=== PATIENT | female | born 1975 | race Caucasian/White ===

== ENCOUNTER 2017-01-21 12:06 | Emergency (ER) | payer OTHER, SELFPAY ==
--- NOTE | 2017-01-21 13:41 | EDM.PDOC ---
Scribed by Ann Marie Kennedy 01/21/17 1341 for Johana Bazan NP ED HPI GENERAL MEDICAL PROBLEM - General Chief Complaint: General Stated Complaint: CYST ON TOP OF HEAD, DIZZLY Time Seen by Provider: 01/21/17 12:20 Source of Information: Reports: Patient, RN, RN Notes Reviewed History Limitations: Reports: No Limitations - History of Present Illness INITIAL COMMENTS - FREE TEXT/NARRATIVE: Patient presents to ER with complaint of pain to her head. States that she fell asleep in the shower on and hit her head. She states pain and dizziness since this time. States blurry vision at times. 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 Patient rates pain 10/10 when touching it. Location: Reports: Head Quality: Reports: Ache Severity: Moderate Improves with: Reports: None Worsens with: Reports: None Associated Symptoms: Reports: No Other Symptoms Head Pain Score (Numeric/FACES): 6 - Related Data Allergies Allergy/AdvReac Type Severity Reaction Status Date / Time No Known Allergies Allergy Unverified 10/04/16 10:34 Home Meds: Home Meds . [No Known Home Meds] 01/21/17 [History] ED ROS GENERAL - Review of Systems Review Of Systems: ROS reveals no pertinent complaints other than HPI. ED EXAM, GENERAL - Physical Exam Exam: See Below Exam Limited By: No Limitations General Appearance: Alert, WD/WN, No Apparent Distress Eye Exam: Bilateral Eye: Normal Inspection Ears: Normal External Exam, Normal Canal, Hearing Grossly Normal, Normal TMs Nose: Normal Inspection, Normal Mucosa, No Blood Throat/Mouth: Normal Inspection, Normal Lips, Normal Teeth, Normal Gums, Normal Oropharynx, Normal Voice, No Airway Compromise Head: Other (left lateral/to top of scalp,edematous, erythematous. Serous crust on top of area.) Neck: Normal Inspection, Supple, Non-Tender, Full Range of Motion Respiratory/Chest: No Respiratory Distress, Lungs Clear, Normal Breath Sounds, No Accessory Muscle Use, Chest Non-Tender Cardiovascular: Normal Peripheral Pulses, Regular Rate, Rhythm, No Edema, No Gallop, No JVD, No Murmur, No Rub GI/Abdominal: Normal Bowel Sounds, Soft, Non-Tender, No Organomegaly, No Distention, No Abnormal Bruit, No Mass (Female) Exam: Deferred Rectal (Female) Exam: Deferred Back Exam: Normal Inspection, Full Range of Motion, NT Extremities: Normal Inspection, Normal Range of Motion, Non-Tender, Normal Capillary Refill, No Pedal Edema Neurological: Alert, Oriented, CN II-XII Intact, Normal Cognition, Normal Gait, Normal Reflexes, No Motor/Sensory Deficits Psychiatric: Normal Affect, Normal Mood Skin Exam: Other (see head/scalp) Lymphatic: No Adenopathy Course - Vital Signs Text/Narrative:: See nurses notes for vitals. - Radiology Interpretation Free Text/Narrative:: Head CT:No acute intracranial hemorrhage or mass effect. See rad report. CT Results Date: 01/21/17 Departure - Departure Time of Disposition: 13:39 Disposition: Home, Self-Care 01 Condition: Fair Clinical Impression: Abscess - Discharge Information Instructions: Abscess Forms: ED Department Discharge Additional Instructions: RX: Bactrim and Cephalexin Rest Follow up with your primary care facility next week. I have read and agree with the documentation that has been completed regarding this visit. By signing this record, I attest that the documentation was completed in my physical presence and is an accurate record of the encounter.
[2017-01-21] MEDS ORDERED: Acetaminophen/HYDROcodone 325-5 MG Tab PO ONE (13:51)
== END 2017-01-21 13:57 | disposition home or self-care (01) ==
LOC: DL.ED 12:06
DX: L02.811 Cutaneous abscess of head [any part, except face] (principal)
CPT/HCPCS: 70450; 99284; A9270; 99283

== ENCOUNTER 2017-09-17 20:08 | Emergency (ER) | payer SELFPAY ==
[2017-09-17] MEDS ORDERED: Acetaminophen/oxyCODONE 325-5 MG Tab PO ONE ×2 (20:09→21:24)
[2017-09-17] MEDS ORDERED: Ibuprofen 600 MG Tab PO ONE (20:53)
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
[2017-09-17] MEDS ORDERED: Acetaminophen/oxyCODONE 325-5 MG Tab ONE (22:19)
== END 2017-09-17 22:28 | disposition home or self-care (01) ==
LOC: DL.ED 20:08
DX: S50.12XA Contusion of left forearm, initial encounter (principal); F17.210 Nicotine dependence, cigarettes, uncomplicated; W20.8XXA Other cause of strike by thrown, projected or falling object, initial encounter; Y93.89 Activity, other specified; Y92.096 Garden or yard of other non-institutional residence as the place of occurrence of the external cause
CPT/HCPCS: 73090; 99283; A9270

== ENCOUNTER 2018-08-31 11:06 | Emergency (ER) | payer MEDICAID ==
[2018-08-31 11:48] LABS: ANION GAP 13.9; CHLORIDE,CL 106 mmol/L (101-111); SODIUM,NA 138 mmol/L (135-145)
[2018-08-31] MEDS ORDERED: Ketorolac 30 MG/ML SDV IM ONE (12:13)
--- NOTE | 2018-08-31 12:15 | EDM.PDOC ---
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 LMP was June. Her due date is March. She has 3 live births/2 D&C/2 miscarriage-- her 5th . She had cramping a couple of hours ago. She has also had chills and diarrhea. No fever, nausea and vomiting. Onset: Gradual Duration: Getting Worse Location: Reports: Abdomen Quality: Reports: Ache Severity: Mild Improves with: Reports: None Worsens with: Reports: None Associated Symptoms: Reports: No Other Symptoms - Related Data Allergies Allergy/AdvReac Type Severity Reaction Status Date / Time No Known Allergies Allergy Verified 08/31/18 11:34 Home Meds: Home Meds Albuterol Sulfate 1 inh INH ASDIRECTED PRN 02/14/18 [History] Albuterol [Ventolin HFA] 1 inh INH ASDIRECTED PRN 02/14/18 [History] ClonazePAM [KlonoPIN] 0.5 mg PO DAILY 02/14/18 [History] FLUoxetine HCl [Fluoxetine HCl] 20 mg PO DAILY 02/14/18 [History] Past Medical History Respiratory History: Reports: Asthma, Bronchitis, Recurrent Genitourinary History: Reports: Renal Disease (Renal cysts) 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: Neurological History: Reports: Concussion Psychiatric History: Reports: Anxiety, Depression Endocrine/Metabolic History: Reports: Obesity/BMI 30+ Dermatologic History: Reports: Other (See Below) Other Dermatologic History: cysts - Infectious Disease History Infectious Disease History: Reports: Chicken Pox, Measles - Past Surgical History HEENT Surgical History: Reports: Tonsillectomy Musculoskeletal Surgical History: Reports: Other (See Below) Other Musculoskeletal Surgeries/Procedures:: hx of fractured ankle Social & Family History - Family History Family Medical History: Noncontributory - Caffeine Use Caffeine Use: Reports: Coffee, Soda - Living Situation & Occupation Living situation: Reports: with Family ED ROS GENERAL - Review of Systems Review Of Systems: ROS reveals no pertinent complaints other than HPI. ED EXAM, RENAL/ - Physical Exam Exam: See Below Exam Limited By: No Limitations General Appearance: Anxious (very) Eye Exam: Bilateral Eye: Normal Inspection Ears: Normal External Exam, Normal Canal, Hearing Grossly Normal, Normal TMs Nose: Normal Inspection, Normal Mucosa, No Blood Throat/Mouth: Normal Inspection, Normal Lips, Normal Teeth, Normal Gums, Normal Oropharynx, Normal Voice, No Airway Compromise Head: Atraumatic, Normocephalic Neck: Normal Inspection, Supple, Non-Tender, Full Range of Motion Respiratory/Chest: No Respiratory Distress, Lungs Clear, Normal Breath Sounds, No Accessory Muscle Use, Chest Non-Tender Cardiovascular: Normal Peripheral Pulses, Regular Rate, Rhythm, No Edema, No Gallop, No JVD, No Murmur, No Rub GI/Abdominal: Normal Bowel Sounds, Soft, Tender (Female) Exam: Normal External Exam, Normal Speculum Exam, Vaginal Bleeding Rectal (Female) Exam: Normal Exam Back Exam: Normal Inspection, Full Range of Motion, NT Extremities: Normal Inspection, Normal Range of Motion, Non-Tender, Normal Capillary Refill, No Pedal Edema Neurological: Alert, Oriented, CN II-XII Intact, Normal Cognition, Normal Gait, Normal Reflexes, No Motor/Sensory Deficits Psychiatric: Anxious (very) Skin Exam: Warm, Dry, Intact, Normal Color, No Rash Lymphatic: No Adenopathy Course - Vital Signs Last Recorded V/S: Last Vital Signs Temp 97.8 F 08/31/18 11:36 Pulse 72 08/31/18 11:36 Resp 16 08/31/18 11:36 BP 134/78 08/31/18 11:36 Pulse Ox 98 08/31/18 11:36 - Orders/Labs/Meds Orders: Active Orders 24 hr Category Date Time Status UA RFX KEIRA AND CULT IF INDIC [URIN] Stat Lab 08/31/18 11:12 Received Labs: Laboratory Tests 08/31/18 08/31/18 08/31/18 Range/Units 11:12 11:12 11:22 WBC 6.7 (5.0-10.0) 10^3/uL RBC 4.97 (4.2-5.4) 10^6/uL Hgb 15.5 (12.0-16.0) g/dL Hct 44.0 (37.0-47.0) % MCV 88.5 (80-100) fL MCH 31.2 (27.0-34.0) pg MCHC 35.2 H (33.0-35.0) g/dL Plt Count 274 (150-450) 10^3/uL Neut % (Auto) 52.7 (42.2-75.2) % Lymph % (Auto) 38.9 (20.5-50.1) % [place] % (Auto) 5.2 (2-8) % Eos % (Auto) 2.8 (1.0-3.0) % Baso % (Auto) 0.4 (0.0-1.0) % Sodium (135-145) mmol/L Potassium (3.6-5.0) mmol/L Chloride (101-111) mmol/L Carbon Dioxide (21.0-31.0) mmol/L Anion Gap BUN (7-18) mg/dL Creatinine (0.6-1.3) mg/dL Est Cr Clr Drug Dosing mL/min Estimated GFR (MDRD) BUN/Creatinine Ratio Glucose (74-105) mg/dL Calcium (8.4-10.2) mg/dl Total Bilirubin (0.2-1.0) mg/dL AST (10-42) IU/L ALT (10-60) IU/L Alkaline Phosphatase (42-121) IU/L Total Protein (6.7-8.2) g/dl Albumin (3.2-5.5) g/dl Globulin Albumin/Globulin Ratio Urine HCG, Qual Negative Urine Opiates Screen Negative (NEGATIVE) Ur Oxycodone Screen Negative (NEGATIVE) Urine Methadone Screen Negative (NEGATIVE) Ur Barbiturates Screen Negative (NEGATIVE) U Tricyclic Antidepress Negative (NEGATIVE) Ur Phencyclidine Scrn Negative (NEGATIVE) Ur Amphetamine Screen Negative (NEGATIVE) U Methamphetamines Scrn Negative (NEGATIVE) Urine MDMA Screen Negative (NEGATIVE) U Benzodiazepines Scrn Negative (NEGATIVE) Urine Cocaine Screen Negative (NEGATIVE) U Marijuana (THC) Screen Negative (NEGATIVE) Ethyl Alcohol mg/dL 08/31/18 Range/Units 11:22 WBC (5.0-10.0) 10^3/uL RBC (4.2-5.4) 10^6/uL Hgb (12.0-16.0) g/dL Hct (37.0-47.0) % MCV (80-100) fL MCH (27.0-34.0) pg MCHC (33.0-35.0) g/dL Plt Count (150-450) 10^3/uL Neut % (Auto) (42.2-75.2) % Lymph % (Auto) (20.5-50.1) % [place] % (Auto) (2-8) % Eos % (Auto) (1.0-3.0) % Baso % (Auto) (0.0-1.0) % Sodium 138 (135-145) mmol/L Potassium 3.9 (3.6-5.0) mmol/L Chloride 106 (101-111) mmol/L Carbon Dioxide 22.0 (21.0-31.0) mmol/L Anion Gap 13.9 BUN 9 (7-18) mg/dL Creatinine 0.5 L (0.6-1.3) mg/dL Est Cr Clr Drug Dosing 135.81 mL/min Estimated GFR (MDRD) > 60 BUN/Creatinine Ratio 18.00 Glucose 130 H (74-105) mg/dL Calcium 9.1 (8.4-10.2) mg/dl Total Bilirubin 0.5 (0.2-1.0) mg/dL AST 22 (10-42) IU/L ALT 26 (10-60) IU/L Alkaline Phosphatase 57 (42-121) IU/L Total Protein 7.1 (6.7-8.2) g/dl Albumin 4.3 (3.2-5.5) g/dl Globulin 2.8 Albumin/Globulin Ratio 1.54 Urine HCG, Qual Urine Opiates Screen (NEGATIVE) Ur Oxycodone Screen (NEGATIVE) Urine Methadone Screen (NEGATIVE) Ur Barbiturates Screen (NEGATIVE) U Tricyclic Antidepress (NEGATIVE) Ur Phencyclidine Scrn (NEGATIVE) Ur Amphetamine Screen (NEGATIVE) U Methamphetamines Scrn (NEGATIVE) Urine MDMA Screen (NEGATIVE) U Benzodiazepines Scrn (NEGATIVE) Urine Cocaine Screen (NEGATIVE) U Marijuana (THC) Screen (NEGATIVE) Ethyl Alcohol < 5 mg/dL Departure - Departure Time of Disposition: 12:11 Disposition: Home, Self-Care 01 Condition: Fair Clinical Impression: Complete - Discharge Information *PRESCRIPTION DRUG MONITORING PROGRAM REVIEWED*: No *COPY OF PRESCRIPTION DRUG MONITORING REPORT IN PATIENT SARY: No Instructions: Miscarriage, [id number] Forms: ED Department Discharge Additional Instructions: Return to the ER with any further problems, Fever, chills, Excessive Bleeding ( changing pad every hour) May use Tylenol and/or Ibuprofen as directed for pain Follow up with Dr. Bush next week Drink plenty of water - My Orders Last 24 Hours: My Active Orders 08/31/18 11:12 UA RFX KEIRA AND CULT IF INDIC [URIN] Stat - Assessment/Plan Last 24 Hours: My Active Orders 08/31/18 11:12 UA RFX KEIRA AND CULT IF INDIC [URIN] Stat I have read and agree with the documentation that has been completed regarding this visit. By signing this record, I attest that the documentation was completed in my physical presence and is an accurate record of the encounter.
== END 2018-08-31 12:29 | disposition home or self-care (01) ==
LOC: DL.ED 11:06
DX: O03.9 Complete or unspecified spontaneous abortion without complication (principal); J45.909 Unspecified asthma, uncomplicated; F41.9 Anxiety disorder, unspecified; F32.9 Major depressive disorder, single episode, unspecified; Z79.899 Other long term (current) drug therapy
CPT/HCPCS: 36415; 80053; 80305; 81001; 81025; 85025; 96372; 99283; G0480; J1885

== ENCOUNTER 2018-11-21 11:55 | Emergency (ER) | payer SELFPAY ==
[2018-11-21] MEDS ORDERED: Albuterol/Ipratropium 3.0-0.5 MG/3 ML Neb Soln NEB ONE (12:13)
--- NOTE | 2018-11-21 12:13 | EDM.PDOC ---
ED HPI GENERAL MEDICAL PROBLEM - General Chief Complaint: Respiratory Problem Stated Complaint: hard time breathing Time Seen by Provider: 11/21/18 12:13 Source of Information: Reports: Patient, Old Records, RN, RN Notes Reviewed History Limitations: Reports: No Limitations - History of Present Illness INITIAL COMMENTS - FREE TEXT/NARRATIVE: Pt presents to ER from home by POV with c/o cough, wheezing, and shortness of breath. Pt reports Hx of asthma, and has been using her Albuterol inhaler without much relief. Pt admits to productive cough with green sputum. Today she also saw some blood tinge to her sputum. Pt states she has reduced her smoking this week because she has been too short of breath to smoke. Pt denies fevers, chills, or chest pain. Pt states she has an pulse-oxy. device at home and has not had oxygen saturations less than 98%. 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 Treatments - Related Data Allergies Allergy/AdvReac Type Severity Reaction Status Date / Time No Known Allergies Allergy Verified 11/21/18 12:09 Home Meds: Home Meds Albuterol Sulfate 1 inh INH ASDIRECTED PRN 02/14/18 [History] Albuterol [Ventolin HFA] 1 inh INH ASDIRECTED PRN 02/14/18 [History] ClonazePAM [KlonoPIN] 0.5 mg PO DAILY 02/14/18 [History] Sertraline [Zoloft] 25 mg PO DAILY 11/21/18 [History] Past Medical History Respiratory History: Reports: Asthma, Bronchitis, Recurrent, Other (See Below) ( Tobacco/Cigarette dependence) Genitourinary History: Reports: Renal Disease (Renal cysts) 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: Neurological History: Reports: Concussion Psychiatric History: Reports: Anxiety, Depression Endocrine/Metabolic History: Reports: Obesity/BMI 30+ Dermatologic History: Reports: Other (See Below) Other Dermatologic History: cysts - Infectious Disease History Infectious Disease History: Reports: Chicken Pox, Measles - Past Surgical History HEENT Surgical History: Reports: Tonsillectomy Musculoskeletal Surgical History: Reports: Other (See Below) Other Musculoskeletal Surgeries/Procedures:: hx of fractured ankle Social & Family History - Family History Family Medical History: Noncontributory - Tobacco Use Smoking Status *Q: Current Every Day Smoker Tobacco Use Within Last Twelve Months: Cigarettes - Caffeine Use Caffeine Use: Reports: Coffee, Soda - Living Situation & Occupation Living situation: Reports: with Significant Other, with Family ED ROS GENERAL - Review of Systems Review Of Systems: ROS reveals no pertinent complaints other than HPI. ED EXAM, GENERAL - Physical Exam Exam: See Below Exam Limited By: No Limitations General Appearance: Alert, WD/WN, Mild Distress (Slightly labored breathing), Obese Ears: Normal External Exam, Hearing Grossly Normal Nose: Normal Inspection, Normal Mucosa, No Blood Throat/Mouth: Normal Lips, Normal Oropharynx, Normal Voice, No Airway Compromise , Other (Chronic dental decay) Head: Atraumatic, Normocephalic Neck: Normal Inspection, Supple, Non-Tender, Full Range of Motion. No: Lymphadenopathy (L), Lymphadenopathy (R) Respiratory/Chest: No Respiratory Distress, No Accessory Muscle Use, Chest Non- Tender, Decreased Breath Sounds, Crackles, Wheezing. No: Rales, Rhonchi, Stridor Cardiovascular: Regular Rate, Rhythm, No Edema GI/Abdominal: Normal Bowel Sounds, Soft, Non-Tender, Other (Benign obese abdomen ) Back Exam: Normal Inspection Extremities: Normal Inspection, Normal Range of Motion, Non-Tender, Normal Capillary Refill, No Pedal Edema Neurological: Alert, Oriented, CN II-XII Intact, Normal Cognition, Normal Gait, No Motor/Sensory Deficits Psychiatric: Normal Affect, Normal Mood Skin Exam: Warm, Dry, Intact, Normal Color, No Rash Course - Vital Signs Last Recorded V/S: Last Vital Signs Temp 97.4 F 11/21/18 12:03 Pulse 80 11/21/18 12:03 Resp 20 11/21/18 12:03 BP 133/70 11/21/18 12:03 Pulse Ox 98 11/21/18 12:03 - Orders/Labs/Meds Orders: Active Orders 24 hr Category Date Time Status Peripheral IV Care [RC] . DIRECTED Care 11/21/18 12:18 Active RT Aerosol Therapy [RC] ASDIRECTED Care 11/21/18 12:13 Active Sodium Chloride 0.9% [Saline Flush] Med 11/21/18 12:18 Active 10 ml FLUSH ASDIRECTED PRN Peripheral IV Insertion Adult [OM.PC] Stat Oth 11/21/18 12:17 Ordered Medication Orders Sodium Chloride (Saline Flush) 10 ml FLUSH ASDIRECTED PRN PRN Reason: Keep Vein Open Last Admin: 11/21/18 12:44 Dose: 10 ml Labs: Laboratory Tests 11/21/18 11/21/18 11/21/18 Range/Units 12:19 12:19 12:19 WBC 8.0 (5.0-10.0) 10^3/uL RBC 4.30 (4.2-5.4) 10^6/uL Hgb 13.6 D (12.0-16.0) g/dL Hct 38.8 (37.0-47.0) % MCV 90.2 (80-100) fL MCH 31.6 (27.0-34.0) pg MCHC 35.1 H (33.0-35.0) g/dL Plt Count 249 (150-450) 10^3/uL Neut % (Auto) 63.3 (42.2-75.2) % Lymph % (Auto) 27.0 (20.5-50.1) % [place] % (Auto) 7.2 (2-8) % Eos % (Auto) 2.1 (1.0-3.0) % Baso % (Auto) 0.4 (0.0-1.0) % D-Dimer, Quantitative 222 (0-400) ng/mL Sodium 140 (135-145) mmol/L Potassium 3.8 (3.6-5.0) mmol/L Chloride 105 (101-111) mmol/L Carbon Dioxide 26.0 (21.0-31.0) mmol/L Anion Gap 12.8 BUN 12 (7-18) mg/dL Creatinine 0.5 L (0.6-1.3) mg/dL Est Cr Clr Drug Dosing 141.08 mL/min Estimated GFR (MDRD) > 60 BUN/Creatinine Ratio 24.00 Glucose 132 H (74-105) mg/dL Calcium 9.0 (8.4-10.2) mg/dl Total Bilirubin 0.4 (0.2-1.0) mg/dL AST 28 (10-42) IU/L ALT 40 (10-60) IU/L Alkaline Phosphatase 63 (42-121) IU/L Total Protein 7.0 (6.7-8.2) g/dl Albumin 4.0 (3.2-5.5) g/dl Globulin 3.0 Albumin/Globulin Ratio 1.33 Urine Color (YELLOW) Urine Appearance (CLEAR) Urine pH (5.0-9.0) Ur Specific [place] (1.005-1.030) Urine Protein (NEGATIVE) Urine Glucose (UA) (NEGATIVE) Urine Ketones (NEGATIVE) Urine Occult Blood (NEGATIVE) Urine Nitrite (NEGATIVE) Urine Bilirubin (NEGATIVE) Urine Urobilinogen (0.2-1.0) mg/dL Ur Leukocyte Esterase (NEGATIVE) Urine HCG, Qual 11/21/18 11/21/18 Range/Units 12:30 12:39 WBC (5.0-10.0) 10^3/uL RBC (4.2-5.4) 10^6/uL Hgb (12.0-16.0) g/dL Hct (37.0-47.0) % MCV (80-100) fL MCH (27.0-34.0) pg MCHC (33.0-35.0) g/dL Plt Count (150-450) 10^3/uL Neut % (Auto) (42.2-75.2) % Lymph % (Auto) (20.5-50.1) % [place] % (Auto) (2-8) % Eos % (Auto) (1.0-3.0) % Baso % (Auto) (0.0-1.0) % D-Dimer, Quantitative (0-400) ng/mL Sodium (135-145) mmol/L Potassium (3.6-5.0) mmol/L Chloride (101-111) mmol/L Carbon Dioxide (21.0-31.0) mmol/L Anion Gap BUN (7-18) mg/dL Creatinine (0.6-1.3) mg/dL Est Cr Clr Drug Dosing mL/min Estimated GFR (MDRD) BUN/Creatinine Ratio Glucose (74-105) mg/dL Calcium (8.4-10.2) mg/dl Total Bilirubin (0.2-1.0) mg/dL AST (10-42) IU/L ALT (10-60) IU/L Alkaline Phosphatase (42-121) IU/L Total Protein (6.7-8.2) g/dl Albumin (3.2-5.5) g/dl Globulin Albumin/Globulin Ratio Urine Color Yellow (YELLOW) Urine Appearance Clear (CLEAR) Urine pH 7.5 (5.0-9.0) Ur Specific [place] 1.015 (1.005-1.030) Urine Protein Negative (NEGATIVE) Urine Glucose (UA) Negative (NEGATIVE) Urine Ketones Negative (NEGATIVE) Urine Occult Blood Negative (NEGATIVE) Urine Nitrite Negative (NEGATIVE) Urine Bilirubin Negative (NEGATIVE) Urine Urobilinogen 0.2 (0.2-1.0) mg/dL Ur Leukocyte Esterase Negative (NEGATIVE) Urine HCG, Qual Negative Meds: Medications Generic Name Dose Route Start Last Admin Trade Name Freq PRN Reason Stop Dose Admin Sodium Chloride 10 ml 11/21/18 12:18 11/21/18 12:44 Saline Flush FLUSH 10 ml ASDIRECTED PRN Administration Keep Vein Open Discontinued Medications Generic Name Dose Route Start Last Admin Trade Name Freq PRN Reason Stop Dose Admin Albuterol/Ipratropium 3 ml 11/21/18 12:13 11/21/18 12:25 Duoneb 3.0-0.5 Mg/3 Ml NEB 11/21/18 12:14 3 ml ONETIME ONE Administration Sodium Chloride 1,000 mls @ 999 mls/hr 11/21/18 12:18 11/21/18 12:43 Normal Saline IV 11/21/18 13:18 999 mls/hr .BOLUS ONE Administration Magnesium Sulfate 100 mls @ 200 mls/hr 11/21/18 12:19 11/21/18 12:54 Magnesium Sulfate In Water Premix IV 11/21/18 12:48 200 mls/hr ONETIME ONE Administration Methylprednisolone Sodium Succinate 125 mg 11/21/18 12:18 11/21/18 12:43 Solu-Medrol IVPUSH 11/21/18 12:19 125 mg ONETIME ONE Administration Ondansetron HCl 4 mg 11/21/18 13:09 11/21/18 13:20 Zofran IV 11/21/18 13:10 4 mg ONETIME ONE Administration - Radiology Interpretation Free Text/Narrative:: CXR: no focal infiltrates, see Rad. report. Departure - Departure Time of Disposition: 13:47 Disposition: Home, Self-Care 01 Condition: Good Clinical Impression: Acute asthma Acute bronchitis Qualifiers: Bronchitis organism: other organism Qualified Code(s): J20.8 - Acute bronchitis due to other specified organisms - Discharge Information *PRESCRIPTION DRUG MONITORING PROGRAM REVIEWED*: No *COPY OF PRESCRIPTION DRUG MONITORING REPORT IN PATIENT SARY: No Instructions: Acute Bronchitis, Adult, Asthma Attack, Steps to Quit Smoking, [id number] Forms: ED Department Discharge Additional Instructions: Rx: Zithromax 500mg Rx: Prednisone 20mg Use your Albuterol nebulizer every 4 hours while awake until wheezing and cough resolve. Try to quit smoking. Follow up in clinic if not improving in 3 to 5 days. - My Orders Last 24 Hours: My Active Orders 11/21/18 12:13 RT Aerosol Therapy [RC] ASDIRECTED 11/21/18 12:17 Peripheral IV Insertion Adult [OM.PC] Stat 11/21/18 12:18 Peripheral IV Care [RC] . DIRECTED Sodium Chloride 0.9% [Saline Flush] 10 ml FLUSH ASDIRECTED PRN - Assessment/Plan Last 24 Hours: My Active Orders 11/21/18 12:13 RT Aerosol Therapy [RC] ASDIRECTED 11/21/18 12:17 Peripheral IV Insertion Adult [OM.PC] Stat 11/21/18 12:18 Peripheral IV Care [RC] . DIRECTED Sodium Chloride 0.9% [Saline Flush] 10 ml FLUSH ASDIRECTED PRN
[2018-11-21] MEDS ORDERED: Sodium Chloride 0.9% 1,000 ML IV ONE (12:18)
[2018-11-21] MEDS ORDERED: Sodium Chloride 0.9% 10 ML Syringe FLUSH PRN (12:18)
[2018-11-21] MEDS ORDERED: methylPREDNISolone Sodium Succinate 125 MG/2 ML SDV IVPUSH ONE (12:18)
[2018-11-21] MEDS ORDERED: Magnesium Sulfate/Water 100 ML IV ONE (12:19)
[2018-11-21 12:49] LABS: ANION GAP 12.8; CHLORIDE,CL 105 mmol/L (101-111); SODIUM,NA 140 mmol/L (135-145)
[2018-11-21] MEDS ORDERED: Ondansetron 4 MG/2 ML SDV IV ONE (13:09)
== END 2018-11-21 14:08 | disposition home or self-care (01) ==
LOC: DL.ED 11:55
DX: J20.8 Acute bronchitis due to other specified organisms (principal); J45.901 Unspecified asthma with (acute) exacerbation; F41.9 Anxiety disorder, unspecified; F32.9 Major depressive disorder, single episode, unspecified; F17.210 Nicotine dependence, cigarettes, uncomplicated; Z79.899 Other long term (current) drug therapy
CPT/HCPCS: 36415; 71046; 80053; 81003; 81025; 85025; 85379; 96365; 96375; 99285; J2405; J2930; J3475; J7030; J7620-GY

== ENCOUNTER 2018-12-03 08:50 | Observation (INO) | payer MEDICAID, OTHER ==
--- NOTE | 2018-12-03 09:30 | EDM.PDOC ---
ED HPI GENERAL MEDICAL PROBLEM - General Chief Complaint: Abdominal Pain Stated Complaint: INTESTINAL PROBLEMS Time Seen by Provider: 12/03/18 09:15 Source of Information: Reports: Patient, RN, RN Notes Reviewed History Limitations: Reports: No Limitations - History of Present Illness INITIAL COMMENTS - FREE TEXT/NARRATIVE: Pt to ER with c/o abdominal pain related to constipation. Patient states she has not had a BM in over 1 week. States she has been having intermittent sharp pains in the left side of the abdomen. Patient states she took a number of stool softeners and laxatives yesterday with no results. Patient states she also used enemas and only got clear watery return. Pt admits to chills and nausea. Denies vomiting, unsure about fever. Denies chances of . Onset: Gradual Abdominal Pain Score (Numeric/FACES): 10 - Related Data Allergies Allergy/AdvReac Type Severity Reaction Status Date / Time No Known Allergies Allergy Verified 11/21/18 12:09 Home Meds: Home Meds Albuterol Sulfate 1 inh INH ASDIRECTED PRN 02/14/18 [History] Albuterol [Ventolin HFA] 1 inh INH ASDIRECTED PRN 02/14/18 [History] ClonazePAM [KlonoPIN] 0.5 mg PO DAILY 02/14/18 [History] Sertraline [Zoloft] 25 mg PO DAILY 11/21/18 [History] Past Medical History Cardiovascular History: Reports: None Respiratory History: Reports: Asthma, Bronchitis, Recurrent, Other (See Below) ( Tobacco/Cigarette dependence) Genitourinary History: Reports: Renal Disease (Renal cysts) 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: Neurological History: Reports: Concussion Psychiatric History: Reports: Anxiety, Depression Endocrine/Metabolic History: Reports: Obesity/BMI 30+ Dermatologic History: Reports: Other (See Below) Other Dermatologic History: cysts - Infectious Disease History Infectious Disease History: Reports: Chicken Pox, Measles - Past Surgical History HEENT Surgical History: Reports: Tonsillectomy Musculoskeletal Surgical History: Reports: Other (See Below) Other Musculoskeletal Surgeries/Procedures:: hx of fractured ankle Social & Family History - Family History Family Medical History: Noncontributory - Caffeine Use Caffeine Use: Reports: Coffee, Soda - Living Situation & Occupation Living situation: Reports: with Significant Other, with Family ED ROS GENERAL - Review of Systems Review Of Systems: ROS reveals no pertinent complaints other than HPI. ED EXAM, GI/ABD - Physical Exam Exam: See Below Exam Limited By: No Limitations General Appearance: Alert, WD/WN, Moderate Distress Eyes: Bilateral: Normal Appearance, EOMI Ears: Normal External Exam, Hearing Grossly Normal Nose: Normal Inspection Throat/Mouth: Normal Inspection, Normal Voice, No Airway Compromise Head: Atraumatic, Normocephalic Neck: Normal Inspection, Supple, Non-Tender, Full Range of Motion Respiratory/Chest: No Respiratory Distress, Lungs Clear, Normal Breath Sounds, No Accessory Muscle Use, Chest Non-Tender Cardiovascular: Normal Peripheral Pulses, Regular Rate, Rhythm, No Edema, No Gallop, No JVD, No Murmur, No Rub GI/Abdominal Exam: Normal Bowel Sounds, Distended, Tender (LUQ, LLQ), Other ( firm) (Female) Exam: Deferred Rectal (Female) Exam: Deferred Back Exam: Normal Inspection, Full Range of Motion, NT Extremities: Normal Inspection, Normal Range of Motion, Non-Tender, Normal Capillary Refill, No Pedal Edema Neurological: Alert, Oriented, CN II-XII Intact, Normal Cognition, Normal Gait, Normal Reflexes, No Motor/Sensory Deficits Psychiatric: Normal Affect, Normal Mood Skin Exam: Warm, Dry, Intact, Normal Color, No Rash Lymphatic: No Adenopathy Course - Vital Signs Last Recorded V/S: Last Vital Signs Temp 98.5 F 12/03/18 10:55 Pulse 82 12/03/18 10:55 Resp 18 12/03/18 10:55 BP 126/81 12/03/18 10:55 Pulse Ox 97 12/03/18 10:55 - Orders/Labs/Meds Orders: Active Orders 24 hr Category Date Time Status Enema [RC] ASDIRECTED Care 12/03/18 10:28 Active Abdomen Pelvis w Cont [CT] Urgent Exams 12/03/18 11:30 Taken Labs: Laboratory Tests 12/03/18 12/03/18 12/03/18 Range/Units 09:20 09:20 09:20 WBC (5.0-10.0) 10^3/uL RBC (4.2-5.4) 10^6/uL Hgb (12.0-16.0) g/dL Hct (37.0-47.0) % MCV (80-100) fL MCH (27.0-34.0) pg MCHC (33.0-35.0) g/dL Plt Count (150-450) 10^3/uL Neut % (Auto) (42.2-75.2) % Lymph % (Auto) (20.5-50.1) % [place] % (Auto) (2-8) % Eos % (Auto) (1.0-3.0) % Baso % (Auto) (0.0-1.0) % Sodium (135-145) mmol/L Potassium (3.6-5.0) mmol/L Chloride (101-111) mmol/L Carbon Dioxide (21.0-31.0) mmol/L Anion Gap BUN (7-18) mg/dL Creatinine (0.6-1.3) mg/dL Est Cr Clr Drug Dosing mL/min Estimated GFR (MDRD) BUN/Creatinine Ratio Glucose (74-105) mg/dL Calcium (8.4-10.2) mg/dl Total Bilirubin (0.2-1.0) mg/dL AST (10-42) IU/L ALT (10-60) IU/L Alkaline Phosphatase (42-121) IU/L Total Protein (6.7-8.2) g/dl Albumin (3.2-5.5) g/dl Globulin Albumin/Globulin Ratio Urine Color Yellow (YELLOW) Urine Appearance Slightly cloudy (CLEAR) Urine pH 8.5 (5.0-9.0) Ur Specific [place] 1.015 (1.005-1.030) Urine Protein Negative (NEGATIVE) Urine Glucose (UA) Negative (NEGATIVE) Urine Ketones Negative (NEGATIVE) Urine Occult Blood Negative (NEGATIVE) Urine Nitrite Negative (NEGATIVE) Urine Bilirubin Negative (NEGATIVE) Urine Urobilinogen 0.2 (0.2-1.0) mg/dL Ur Leukocyte Esterase Negative (NEGATIVE) Urine HCG, Qual Negative Urine Opiates Screen Negative (NEGATIVE) Ur Oxycodone Screen Negative (NEGATIVE) Urine Methadone Screen Negative (NEGATIVE) Ur Barbiturates Screen Negative (NEGATIVE) U Tricyclic Antidepress Negative (NEGATIVE) Ur Phencyclidine Scrn Negative (NEGATIVE) Ur Amphetamine Screen Negative (NEGATIVE) U Methamphetamines Scrn Negative (NEGATIVE) Urine MDMA Screen Negative (NEGATIVE) U Benzodiazepines Scrn Negative (NEGATIVE) Urine Cocaine Screen Negative (NEGATIVE) U Marijuana (THC) Screen Negative (NEGATIVE) 12/03/18 12/03/18 Range/Units 10:37 10:37 WBC 8.2 (5.0-10.0) 10^3/uL RBC 4.49 (4.2-5.4) 10^6/uL Hgb 14.4 (12.0-16.0) g/dL Hct 41.7 (37.0-47.0) % MCV 92.9 (80-100) fL MCH 32.1 (27.0-34.0) pg MCHC 34.5 (33.0-35.0) g/dL Plt Count 239 (150-450) 10^3/uL Neut % (Auto) 56.6 (42.2-75.2) % Lymph % (Auto) 31.7 (20.5-50.1) % [place] % (Auto) 8.6 H (2-8) % Eos % (Auto) 2.6 (1.0-3.0) % Baso % (Auto) 0.5 (0.0-1.0) % Sodium 137 (135-145) mmol/L Potassium 3.8 (3.6-5.0) mmol/L Chloride 102 (101-111) mmol/L Carbon Dioxide 27.0 (21.0-31.0) mmol/L Anion Gap 11.8 BUN 12 (7-18) mg/dL Creatinine 0.7 (0.6-1.3) mg/dL Est Cr Clr Drug Dosing 100.77 mL/min Estimated GFR (MDRD) > 60 BUN/Creatinine Ratio 17.14 Glucose 139 H (74-105) mg/dL Calcium 8.9 (8.4-10.2) mg/dl Total Bilirubin 0.8 (0.2-1.0) mg/dL AST 21 (10-42) IU/L ALT 31 (10-60) IU/L Alkaline Phosphatase 55 (42-121) IU/L Total Protein 7.1 (6.7-8.2) g/dl Albumin 4.2 (3.2-5.5) g/dl Globulin 2.9 Albumin/Globulin Ratio 1.45 Urine Color (YELLOW) Urine Appearance (CLEAR) Urine pH (5.0-9.0) Ur Specific [place] (1.005-1.030) Urine Protein (NEGATIVE) Urine Glucose (UA) (NEGATIVE) Urine Ketones (NEGATIVE) Urine Occult Blood (NEGATIVE) Urine Nitrite (NEGATIVE) Urine Bilirubin (NEGATIVE) Urine Urobilinogen (0.2-1.0) mg/dL Ur Leukocyte Esterase (NEGATIVE) Urine HCG, Qual Urine Opiates Screen (NEGATIVE) Ur Oxycodone Screen (NEGATIVE) Urine Methadone Screen (NEGATIVE) Ur Barbiturates Screen (NEGATIVE) U Tricyclic Antidepress (NEGATIVE) Ur Phencyclidine Scrn (NEGATIVE) Ur Amphetamine Screen (NEGATIVE) U Methamphetamines Scrn (NEGATIVE) Urine MDMA Screen (NEGATIVE) U Benzodiazepines Scrn (NEGATIVE) Urine Cocaine Screen (NEGATIVE) U Marijuana (THC) Screen (NEGATIVE) Meds: Medications Discontinued Medications Generic Name Dose Route Start Last Admin Trade Name Freq PRN Reason Stop Dose Admin Iopamidol 100 ml 12/03/18 11:31 12/03/18 11:53 Isovue-300 (61%) IVPUSH 12/03/18 11:32 100 ml ONETIME ONE Administration Magnesium Citrate 296 ml 12/03/18 10:27 12/03/18 10:36 Citrate Of Magnesia PO 12/03/18 10:28 296 ml ONETIME ONE Administration - Radiology Interpretation Free Text/Narrative:: Abdomen flat and upright: FINDINGS: Gastrointestinal tract: There is no significant distention of the small bowel or large bowel on this current examination. No significant stool burden. Intraperitoneal space: Surgical clips are noted in the right upper quadrant most likely due to prior cholecystectomy. Bones/joints: Unremarkable for age. IMPRESSION: No significant stool burden. Thank you for allowing us to participate in the care of your patient. Dictated and Authenticated by: Errol Granados MD 12/03/2018 10:23 AM Central Time ([place] & [place]) CT Abdomen/Pelvis with contrast: FINDINGS: Liver: There is a diffuse decrease in hepatic parenchymal density, consistent with mild fatty infiltration. Enlarged liver measuring 22 cm in craniocaudad dimension. Gallbladder and bile ducts: The patient is status post cholecystectomy. Pancreas: Normal. No ductal dilation. Spleen: Normal. No splenomegaly. Adrenals: Normal. No mass. Kidneys and ureters: 1.6 cm cyst at the lower pole of the right kidney. No hydronephrosis. 8 mm cyst within the interpolar region of the left kidney. Stomach and bowel: Increased intraluminal colonic fluid, with colonic air-fluid levels, which can be seen with diarrheal illness secondary to colonic hypersecretion or poor colonic water resorption. Appendix: The appendix is not seen with confidence. However, there are no secondary signs of appendicitis appreciated. Intraperitoneal space: Unremarkable. No free air. No significant fluid collection. Vasculature: Left retroaortic renal vein. No abdominal aortic aneurysm. Lymph nodes: Unremarkable. No enlarged lymph nodes. Bladder: Unremarkable as visualized. Reproductive: Unremarkable as visualized. Bones/joints: Unremarkable. No acute fracture. Soft tissues: Unremarkable. IMPRESSION: No acute findings. COMMENT: Consistent with the [employer]'s Incidental Findings Committee Report (J Am Pete Radiol 2010): Unless the patient's specific circumstances suggest otherwise , any liver lesion 0.5 cm or less, any cystic kidney lesion less than 1.0 cm, and/or any adrenal lesion 1.0 cm or less not otherwise characterized in this report as possessing suspicious or indeterminate imaging features is/are highly likely to be benign and do not require follow-up imaging or biopsy. Thank you for allowing us to participate in the care of your patient. Dictated and Authenticated by: Errol Granados MD 12/03/2018 12:04 PM Central Time ([place] & [place]) See rad report - Re-Assessments/Exams Free Text/Narrative Re-Assessment/Exam: 12/03/18 11:17 Patient moved to the medical floor for enemas. 12/03/18 12:25 Discussed patient care with Dr. Fox who agreed to accept the patient for observation admission. Departure - Departure Time of Disposition: 12:25 Disposition: Refer to Observation Condition: Fair Clinical Impression: Constipation Qualifiers: Constipation type: unspecified constipation type Qualified Code(s): K59.00 - Constipation, unspecified - Discharge Information *PRESCRIPTION DRUG MONITORING PROGRAM REVIEWED*: No *COPY OF PRESCRIPTION DRUG MONITORING REPORT IN PATIENT SARY: No Forms: ED Department Discharge - My Orders Last 24 Hours: My Active Orders 12/03/18 10:28 Enema [RC] ASDIRECTED 12/03/18 11:30 Abdomen Pelvis w Cont [CT] Urgent - Assessment/Plan Last 24 Hours: My Active Orders 12/03/18 10:28 Enema [RC] ASDIRECTED 12/03/18 11:30 Abdomen Pelvis w Cont [CT] Urgent
[2018-12-03] MEDS ORDERED: Magnesium Citrate Solution 296 ML Bottle PO ONE (10:27)
[2018-12-03 11:02] LABS: ANION GAP 11.8; CHLORIDE,CL 102 mmol/L (101-111); SODIUM,NA 137 mmol/L (135-145)
[2018-12-03] MEDS ORDERED: Iopamidol 612 MG/ML 100 ML Bottle IVPUSH ONE (11:31)
[2018-12-03] MEDS ORDERED: Sodium Chloride 0.9% 10 ML Syringe FLUSH PRN ×2 (14:23)
[2018-12-03] MEDS ORDERED: Ondansetron 4 MG/2 ML SDV IV PRN (14:24)
[2018-12-03] MEDS ORDERED: Albuterol 0.083% 2.5 MG/3 ML Neb Soln INH PRN (14:24)
--- NOTE | 2018-12-03 14:32 | PCM.HP ---
H&P History of Present Illness - General Date of Service: 12/03/18 Admit Problem/Dx: Admission Diagnosis/Problem Admission Diagnosis/Problem Ileus Source of Information: Patient History Limitations: Reports: No Limitations - History of Present Illness Initial Comments - Free Text/Narative: 43 yo F with Hx of depression/anxiety disorder, reactive airway disease, who presents with abdominal pain. Abdominal pain started two days ago, located periumbilically, 8/10 intensity, constant, dull ache, no relieving or aggravating factors. Associated with nausea , dry retching. No fever, no chest pain, no SOB, no urinary symptoms. Has hx of abdominal surgery - cholecystectomy six months ago. Had CT abd in the ED, shows increased intraluminal colonic fluid with air/fluid level. No appendicitis, no pancreatitis, no transition point. Abdominal Pain Score (Numeric/FACES): 10 - Related Data Allergies/Adverse Reactions: Allergies Allergy/AdvReac Type Severity Reaction Status Date / Time No Known Allergies Allergy Verified 11/21/18 12:09 Home Medications: Home Meds Albuterol Sulfate 1 inh INH Q6H PRN 02/14/18 [History] Albuterol [Ventolin HFA] 1 inh INH Q6H PRN 02/14/18 [History] ClonazePAM [KlonoPIN] 0.5 mg PO DAILY PRN 02/14/18 [History] Sertraline [Zoloft] 50 mg PO DAILY 11/21/18 [History] Past Medical History HEENT History: Reports: None Cardiovascular History: Reports: None Respiratory History: Reports: Asthma, Bronchitis, Recurrent Gastrointestinal History: Reports: Cholelithiasis Genitourinary History: Reports: Renal Disease, Other (See Below) Other Genitourinary History: unknown kidney disease [employer] History: Reports: , Spontaneous Musculoskeletal History: Reports: Fracture Neurological History: Reports: Brain Injury, Concussion Psychiatric History: Reports: Anxiety, Depression, PTSD, Suicide Attempt Endocrine/Metabolic History: Reports: Obesity/BMI 30+, Other (See Below) Other Endocrine/Metabolic History: currently testing thyroid and T4 levels, questioning hashimotos Hematologic History: Reports: Anemia Immunologic History: Reports: None Oncologic (Cancer) History: Reports: None Dermatologic History: Reports: Other (See Below) Other Dermatologic History: cysts - Infectious Disease History Infectious Disease History: Reports: Chicken Pox - Past Surgical History Head Surgeries/Procedures: Reports: None HEENT Surgical History: Reports: Tonsillectomy Respiratory Surgical History: Reports: None GI Surgical History: Reports: Cholecystectomy Neurological Surgical History: Reports: None Musculoskeletal Surgical History: Reports: Other (See Below) Other Musculoskeletal Surgeries/Procedures:: hx of fractured ankle Social & Family History - Family History Family Medical History: Noncontributory - Tobacco Use Smoking Status *Q: Current Every Day Smoker Years of Tobacco use: 7 Packs/Tins Daily: 0.2 Used Tobacco, but Quit: No Second Hand Smoke Exposure: Yes - Caffeine Use Caffeine Use: Reports: Coffee, Soda - Alcohol Use Days Per Week of Alcohol Use: 3 Number of Drinks Per Day: 3 Total Drinks Per Week: 9 Date of Last Drink: 11/28/18 - Recreational Drug Use Recreational Drug Use: No - Living Situation & Occupation Living situation: Reports: with Significant Other, with Family H&P Review of Systems - Review of Systems: Review Of Systems: ROS reveals no pertinent complaints other than HPI. General: Reports: No Symptoms. Denies: Fever HEENT: Reports: No Symptoms Pulmonary: Reports: No Symptoms Cardiovascular: Reports: No Symptoms Gastrointestinal: Reports: Abdominal Pain, Nausea Genitourinary: Reports: No Symptoms Musculoskeletal: Reports: No Symptoms Skin: Reports: No Symptoms Psychiatric: Reports: No Symptoms Neurological: Reports: No Symptoms Exam - Exam Exam: See Below - Vital Signs Vital Signs: Last Vital Signs Temp 36.5 C 12/03/18 12:43 Pulse 73 12/03/18 12:43 Resp 17 12/03/18 12:43 BP 122/82 12/03/18 12:43 Pulse Ox 99 12/03/18 12:43 Weight: 108.771 kg - Exam General: Alert, Oriented HEENT: Conjunctiva Clear, EACs Clear, EOMI Neck: Supple, Trachea Midline Lungs: Clear to Auscultation, Normal Respiratory Effort Cardiovascular: Regular Rate, Regular Rhythm, Normal S1, Normal S2 GI/Abdominal Exam: Tender, Abnormal Bowel Sounds. No: Guarding, Rigid, Rebound Extremities: Normal Inspection, Normal Range of Motion, Non-Tender, No Pedal Edema - Patient Data Lab Results Last 24 hrs: Laboratory Results - last 24 hr 12/03/18 12/03/18 12/03/18 Range/Units 09:20 09:20 09:20 WBC (5.0-10.0) 10^3/uL RBC (4.2-5.4) 10^6/uL Hgb (12.0-16.0) g/dL Hct (37.0-47.0) % MCV (80-100) fL MCH (27.0-34.0) pg MCHC (33.0-35.0) g/dL Plt Count (150-450) 10^3/uL Neut % (Auto) (42.2-75.2) % Lymph % (Auto) (20.5-50.1) % [place] % (Auto) (2-8) % Eos % (Auto) (1.0-3.0) % Baso % (Auto) (0.0-1.0) % Sodium (135-145) mmol/L Potassium (3.6-5.0) mmol/L Chloride (101-111) mmol/L Carbon Dioxide (21.0-31.0) mmol/L Anion Gap BUN (7-18) mg/dL Creatinine (0.6-1.3) mg/dL Est Cr Clr Drug Dosing mL/min Estimated GFR (MDRD) BUN/Creatinine Ratio Glucose (74-105) mg/dL Calcium (8.4-10.2) mg/dl Total Bilirubin (0.2-1.0) mg/dL AST (10-42) IU/L ALT (10-60) IU/L Alkaline Phosphatase (42-121) IU/L Total Protein (6.7-8.2) g/dl Albumin (3.2-5.5) g/dl Globulin Albumin/Globulin Ratio Urine Color Yellow (YELLOW) Urine Appearance Slightly cloudy (CLEAR) Urine pH 8.5 (5.0-9.0) Ur Specific [place] 1.015 (1.005-1.030) Urine Protein Negative (NEGATIVE) Urine Glucose (UA) Negative (NEGATIVE) Urine Ketones Negative (NEGATIVE) Urine Occult Blood Negative (NEGATIVE) Urine Nitrite Negative (NEGATIVE) Urine Bilirubin Negative (NEGATIVE) Urine Urobilinogen 0.2 (0.2-1.0) mg/dL Ur Leukocyte Esterase Negative (NEGATIVE) Urine HCG, Qual Negative Urine Opiates Screen Negative (NEGATIVE) Ur Oxycodone Screen Negative (NEGATIVE) Urine Methadone Screen Negative (NEGATIVE) Ur Barbiturates Screen Negative (NEGATIVE) U Tricyclic Antidepress Negative (NEGATIVE) Ur Phencyclidine Scrn Negative (NEGATIVE) Ur Amphetamine Screen Negative (NEGATIVE) U Methamphetamines Scrn Negative (NEGATIVE) Urine MDMA Screen Negative (NEGATIVE) U Benzodiazepines Scrn Negative (NEGATIVE) Urine Cocaine Screen Negative (NEGATIVE) U Marijuana (THC) Screen Negative (NEGATIVE) 12/03/18 12/03/18 Range/Units 10:37 10:37 WBC 8.2 (5.0-10.0) 10^3/uL RBC 4.49 (4.2-5.4) 10^6/uL Hgb 14.4 (12.0-16.0) g/dL Hct 41.7 (37.0-47.0) % MCV 92.9 (80-100) fL MCH 32.1 (27.0-34.0) pg MCHC 34.5 (33.0-35.0) g/dL Plt Count 239 (150-450) 10^3/uL Neut % (Auto) 56.6 (42.2-75.2) % Lymph % (Auto) 31.7 (20.5-50.1) % [place] % (Auto) 8.6 H (2-8) % Eos % (Auto) 2.6 (1.0-3.0) % Baso % (Auto) 0.5 (0.0-1.0) % Sodium 137 (135-145) mmol/L Potassium 3.8 (3.6-5.0) mmol/L Chloride 102 (101-111) mmol/L Carbon Dioxide 27.0 (21.0-31.0) mmol/L Anion Gap 11.8 BUN 12 (7-18) mg/dL Creatinine 0.7 (0.6-1.3) mg/dL Est Cr Clr Drug Dosing 100.77 mL/min Estimated GFR (MDRD) > 60 BUN/Creatinine Ratio 17.14 Glucose 139 H (74-105) mg/dL Calcium 8.9 (8.4-10.2) mg/dl Total Bilirubin 0.8 (0.2-1.0) mg/dL AST 21 (10-42) IU/L ALT 31 (10-60) IU/L Alkaline Phosphatase 55 (42-121) IU/L Total Protein 7.1 (6.7-8.2) g/dl Albumin 4.2 (3.2-5.5) g/dl Globulin 2.9 Albumin/Globulin Ratio 1.45 Urine Color (YELLOW) Urine Appearance (CLEAR) Urine pH (5.0-9.0) Ur Specific [place] (1.005-1.030) Urine Protein (NEGATIVE) Urine Glucose (UA) (NEGATIVE) Urine Ketones (NEGATIVE) Urine Occult Blood (NEGATIVE) Urine Nitrite (NEGATIVE) Urine Bilirubin (NEGATIVE) Urine Urobilinogen (0.2-1.0) mg/dL Ur Leukocyte Esterase (NEGATIVE) Urine HCG, Qual Urine Opiates Screen (NEGATIVE) Ur Oxycodone Screen (NEGATIVE) Urine Methadone Screen (NEGATIVE) Ur Barbiturates Screen (NEGATIVE) U Tricyclic Antidepress (NEGATIVE) Ur Phencyclidine Scrn (NEGATIVE) Ur Amphetamine Screen (NEGATIVE) U Methamphetamines Scrn (NEGATIVE) Urine MDMA Screen (NEGATIVE) U Benzodiazepines Scrn (NEGATIVE) Urine Cocaine Screen (NEGATIVE) U Marijuana (THC) Screen (NEGATIVE) Result Diagrams: 12/03/18 10:37 12/03/18 10:37 Problem List Initiated/Reviewed/Updated: Yes Orders Last 24hrs: Active Orders 24 hr Category Date Time Status Admission Diagnosis [ADT] Routine ADT 12/03/18 12:30 Ordered Patient Status [ADT] Routine ADT 12/03/18 14:23 Ordered Ambulate [RC] ASDIRECTED Care 12/03/18 14:23 Ordered Height and Weight [RC] DAILY Care 12/03/18 14:23 Ordered Oxygen Therapy [RC] PRN Care 12/03/18 14:23 Ordered Peripheral IV Care [RC] . DIRECTED Care 12/03/18 14:23 Ordered Up With Assistance [RC] ASDIRECTED Care 12/03/18 14:23 Ordered VTE/DVT Education [RC] PER UNIT ROUTINE Care 12/03/18 14:23 Ordered Vital Signs [RC] Q4H Care 12/03/18 14:23 Ordered Nothing per Oral Now Diet [DIET] Diet 12/03/18 Dinner Ordered Abdomen Pelvis w Cont [CT] Urgent Exams 12/03/18 11:30 Taken BASIC METABOLIC PANEL,BMP [CHEM] AM Lab 12/04/18 05:11 Ordered BASIC METABOLIC PANEL,BMP [CHEM] AM Lab 12/05/18 05:11 Ordered BASIC METABOLIC PANEL,BMP [CHEM] AM Lab 12/06/18 05:11 Ordered CBC W/O DIFF,HEMOGRAM [HEME] AM Lab 12/04/18 05:11 Ordered CBC W/O DIFF,HEMOGRAM [HEME] AM Lab 12/05/18 05:11 Ordered CBC W/O DIFF,HEMOGRAM [HEME] AM Lab 12/06/18 05:11 Ordered Albuterol [Proventil Neb Soln] Med 12/03/18 14:24 Ordered 1 inh INH Q6H PRN Dextrose 5%-Normal Saline @ 125 MLS/HR(1000ml) Med 12/03/18 14:30 Ordered Dextrose 5%-0.9% NaCl [Dextrose 5%-Normal Saline] 1,000 ml IV ASDIRECTED Ondansetron [Zofran] Med 12/03/18 14:24 Ordered 4 mg IV Q4H PRN Sodium Chloride 0.9% [Saline Flush] Med 12/03/18 14:23 Ordered 10 ml FLUSH ASDIRECTED PRN Sodium Chloride 0.9% [Saline Flush] Med 12/03/18 14:23 Ordered 10 ml FLUSH ASDIRECTED PRN NG [Nasogastric Orogastric Tube Insertion] [OM.PC] Oth 12/03/18 14:26 Ordered Routine Peripheral IV Insertion Adult [OM.PC] Routine Oth 12/03/18 14:23 Ordered Saline Lock Insert [OM.PC] Routine Oth 12/03/18 14:23 Ordered Resuscitation Status Routine Resus Stat 12/03/18 14:23 Ordered Medication Orders Albuterol (Proventil Neb Soln) mg INH Q6H PRN PRN Reason: breathing Dextrose/Sodium Chloride (Dextrose 5%-Normal Saline) 1,000 mls @ 125 mls/hr IV ASDIRECTED TANISHA Ondansetron HCl (Zofran) 4 mg IV Q4H PRN PRN Reason: Nausea/Vomiting Sodium Chloride (Saline Flush) 10 ml FLUSH ASDIRECTED PRN PRN Reason: Keep Vein Open Sodium Chloride (Saline Flush) 10 ml FLUSH ASDIRECTED PRN PRN Reason: Keep Vein Open Assessment/Plan Comment:: #Abdominal pain. Had CT abd in the ED, shows increased intraluminal colonic fluid with air/fluid level. No appendicitis, no pancreatitis, no transition point. Unclear etiology Possible ileus given hypoactive bowel sounds, ?Jachin's syndrome Strict NPO Place NG tubes, connect to low intermittent suction Pain mgt: IV ketorolac IV fluid for hydration Monitor vital signs #DVT ppx SC lovenox
--- NOTE | 2018-12-03 14:40 | PCM.SN ---
- Free Text/Narrative Note: Check amylase/lipase
[2018-12-03] MEDS ORDERED: Benzocaine 20% Oral Spray 59.2 ML Canister MUCMEM PRN (15:00)
[2018-12-03] MEDS ORDERED: Benzocaine 20% Topical Spray UD MUCMEM ONE (15:15)
[2018-12-03] MEDS: Ketorolac 30 MG/ML SDV IVPUSH PRN ×2 (15:29→21:55)
[2018-12-03] MEDS: Dextrose 5%-0.9% NaCl 1,000 ML IV SCH ×2 (15:32→23:56)
[2018-12-03] MEDS: Enoxaparin 40 MG/0.4 ML Syringe SUBCUT SCH (16:04)
[2018-12-03] MEDS: Benzocaine 20% Oral Spray 59.2 ML Canister MUCMEM PRN (21:47)
[2018-12-04] MEDS: Benzocaine 20% Oral Spray 59.2 ML Canister MUCMEM PRN ×9 (00:03→22:52)
[2018-12-04] MEDS: Ketorolac 30 MG/ML SDV IVPUSH PRN ×3 (04:42→18:10)
[2018-12-04 06:55] LABS: ANION GAP 11.4; CHLORIDE,CL 107 mmol/L (101-111); SODIUM,NA 140 mmol/L (135-145)
[2018-12-04] MEDS: Dextrose 5%-0.9% NaCl 1,000 ML IV SCH ×2 (08:09→16:55)
[2018-12-04] MEDS: Enoxaparin 40 MG/0.4 ML Syringe SUBCUT SCH (08:11)
[2018-12-04] MEDS ORDERED: Potassium Chloride 10 MEQ in Premix Bag 1 BAG IV SCH (09:00)
[2018-12-04] MEDS: Potassium Chloride 20 MEQ in Premix Bag 1 BAG IV SCH ×2 (09:44→12:15)
--- NOTE | 2018-12-04 11:20 | PCM.PN ---
- General Info Date of Service: 12/04/18 Admission Dx/Problem (Free Text): Admission Diagnosis/Problem Admission Diagnosis/Problem Ileus Subjective Update: Pt seen and examined NG tube in place on low intermittent suction Abdominal pain is improved. Functional Status: Reports: Pain Controlled - Review of Systems General: Reports: No Symptoms. Denies: Fever HEENT: Reports: No Symptoms Pulmonary: Reports: No Symptoms Cardiovascular: Reports: No Symptoms Gastrointestinal: Reports: Abdominal Pain Genitourinary: Reports: No Symptoms Musculoskeletal: Reports: No Symptoms Skin: Reports: No Symptoms Neurological: Reports: No Symptoms - Patient Data Vitals - Most Recent: Last Vital Signs Temp 36.1 C 12/04/18 08:00 Pulse 73 12/04/18 08:00 Resp 18 12/04/18 08:00 BP 128/83 12/04/18 08:00 Pulse Ox 97 12/04/18 08:00 Weight - Most Recent: 107.411 kg I&O - Last 24 Hours: Intake & Output 12/03/18 12/04/18 12/04/18 22:59 06:59 14:59 Intake Total 658 826 Output Total 400 1100 Balance 258 -274 Lab Results Last 24 Hours: Laboratory Results - last 24 hr 12/03/18 12/04/18 12/04/18 Range/Units 10:37 05:48 05:48 WBC 8.8 (5.0-10.0) 10^3/uL RBC 4.17 L (4.2-5.4) 10^6/uL Hgb 13.1 (12.0-16.0) g/dL Hct 38.9 (37.0-47.0) % MCV 93.3 (80-100) fL MCH 31.4 (27.0-34.0) pg MCHC 33.7 (33.0-35.0) g/dL Plt Count 234 (150-450) 10^3/uL Sodium 140 (135-145) mmol/L Potassium 3.4 L (3.6-5.0) mmol/L Chloride 107 (101-111) mmol/L Carbon Dioxide 25.0 (21.0-31.0) mmol/L Anion Gap 11.4 BUN 10 (7-18) mg/dL Creatinine 0.6 (0.6-1.3) mg/dL Est Cr Clr Drug Dosing 117.57 mL/min Estimated GFR (MDRD) > 60 Glucose 153 H (74-105) mg/dL Calcium 8.5 (8.4-10.2) mg/dl Amylase 25 L (28-100) U/L Lipase 22 (22-51) U/L Med Orders - Current: Current Medications Albuterol (Proventil Neb Soln) mg INH Q6H PRN PRN Reason: breathing Benzocaine (Hurricaine 20% [place]) 0 ml MUCMEM Q1H PRN PRN Reason: Other Last Admin: 12/04/18 10:28 Dose: 1 spray Enoxaparin Sodium (Lovenox) 40 mg SUBCUT DAILY [facility] Last Admin: 12/04/18 08:11 Dose: 40 mg Dextrose/Sodium Chloride (Dextrose 5%-Normal Saline) 1,000 mls @ 125 mls/hr IV ASDIRECTED TANISHA Last Admin: 12/04/18 08:09 Dose: 125 mls/hr Potassium Chloride 20 meq/ (Premix) 100 mls @ 100 mls/hr IV Q2H TANISHA Stop: 12/04/18 11:59 Last Admin: 12/04/18 09:44 Dose: 50 mls/hr Ketorolac Tromethamine (Toradol) 15 mg IVPUSH Q6H PRN PRN Reason: Pain Stop: 12/08/18 15:01 Last Admin: 12/04/18 04:42 Dose: 15 mg Ondansetron HCl (Zofran) 4 mg IV Q4H PRN PRN Reason: Nausea/Vomiting Sodium Chloride (Saline Flush) 10 ml FLUSH ASDIRECTED PRN PRN Reason: Keep Vein Open Discontinued Medications Benzocaine (Hurricaine One 20%) 1 each MUCMEM ONETIME ONE Stop: 12/03/18 15:16 Last Admin: 12/03/18 16:17 Dose: 1 each Benzocaine (Hurricaine 20% [place]) 0 ml MUCMEM TID PRN PRN Reason: Throat pain Last Admin: 12/03/18 19:40 Dose: 1 spray Potassium Chloride 10 meq/ (Premix) 100 mls @ 100 mls/hr IV Q1H [facility] Stop: 12/04/18 12:59 Last Admin: 12/04/18 09:12 Dose: Not Given Iopamidol (Isovue-300 (61%)) 100 ml IVPUSH ONETIME ONE Stop: 12/03/18 11:32 Last Admin: 12/03/18 11:53 Dose: 100 ml Magnesium Citrate (Citrate Of Magnesia) 296 ml PO ONETIME ONE Stop: 12/03/18 10:28 Last Admin: 12/03/18 10:36 Dose: 296 ml Sodium Chloride (Saline Flush) 10 ml FLUSH ASDIRECTED PRN PRN Reason: Keep Vein Open - Exam General: Alert, Oriented HEENT: Pupils Equal, Pupils Reactive Neck: Supple Lungs: Clear to Auscultation, Normal Respiratory Effort Cardiovascular: Regular Rate, Regular Rhythm GI/Abdominal Exam: Soft, Abnormal Bowel Sounds, Other (NG tube in place, hypoactive bowel sounds). No: Guarding, Rigid, Rebound Extremities: Normal Inspection, Normal Range of Motion, Non-Tender, No Pedal Edema - Problem List Review Problem List Initiated/Reviewed/Updated: Yes - My Orders Last 24 Hours: My Active Orders 12/03/18 14:23 Patient Status [ADT] Routine Ambulate [RC] ASDIRECTED Height and Weight [RC] DAILY Oxygen Therapy [RC] .PRN Peripheral IV Care [RC] . DIRECTED Up With Assistance [RC] ASDIRECTED VTE/DVT Education [RC] PER UNIT ROUTINE Vital Signs [RC] 00,04,08,12,16,20 Sodium Chloride 0.9% [Saline Flush] 10 ml FLUSH ASDIRECTED PRN Peripheral IV Insertion Adult [OM.PC] Routine Saline Lock Insert [OM.PC] Routine Resuscitation Status Routine 12/03/18 14:24 Albuterol [Proventil Neb Soln] DOSE mg INH Q6H PRN Ondansetron [Zofran] 4 mg IV Q4H PRN 12/03/18 14:26 NG [Nasogastric Orogastric Tube Insertion] [OM.PC] Routine 12/03/18 14:30 Dextrose 5%-0.9% NaCl [Dextrose 5%-Normal Saline] 1,000 ml IV ASDIRECTED 12/03/18 15:00 Enoxaparin [Lovenox] 40 mg SUBCUT DAILY Ketorolac [Toradol] 15 mg IVPUSH Q6H PRN 12/03/18 16:34 Abdomen 1V Flat [CR] Routine 12/03/18 21:05 Benzocaine [Hurricaine 20% [place]] 0 ml MUCMEM Q1H PRN 12/03/18 Dinner Nothing per Oral Now Diet [DIET] 12/04/18 09:00 Potassium Chloride [KCL 20 MEQ in Water 100 ML] 20 meq Premix Bag 1 bag IV Q2H 12/05/18 05:11 BASIC METABOLIC PANEL,BMP [CHEM] AM CBC W/O DIFF,HEMOGRAM [HEME] AM 12/06/18 05:11 BASIC METABOLIC PANEL,BMP [CHEM] AM CBC W/O DIFF,HEMOGRAM [HEME] AM - Plan Plan:: #Abdominal pain. Had CT abd in the ED, shows increased intraluminal colonic fluid with air/fluid level. No appendicitis, no pancreatitis, no transition point. Unclear etiology: Lipase and amylase are normal. Possible ileus given hypoactive bowel sounds, ?Gita's syndrome Strict NPO Continue NG tubes, connect to low intermittent suction Pain mgt: IV ketorolac, hurricane spray for throat irritation IV fluid for hydration Monitor vital signs #DVT ppx SC lovenox
[2018-12-04] MEDS: LORazepam 2 MG/ML Syringe IVPUSH ONE ×2 (22:51→23:04)
[2018-12-05] MEDS: Ketorolac 30 MG/ML SDV IVPUSH PRN (01:36)
[2018-12-05] MEDS: Dextrose 5%-0.9% NaCl 1,000 ML IV SCH ×2 (01:39→09:51)
[2018-12-05] MEDS: Benzocaine 20% Oral Spray 59.2 ML Canister MUCMEM PRN (06:47)
[2018-12-05 06:55] LABS: ANION GAP 9.6; CHLORIDE,CL 109 mmol/L (101-111); SODIUM,NA 140 mmol/L (135-145)
[2018-12-05] MEDS: Enoxaparin 40 MG/0.4 ML Syringe SUBCUT SCH (09:09)
[2018-12-05] MEDS ORDERED: Acetaminophen 325 MG Tab PO PRN (09:48)
[2018-12-05] MEDS ORDERED: ClonazePAM 0.5 MG Tab PO PRN (09:48)
[2018-12-05] MEDS ORDERED: Ibuprofen 800 MG Tab PO PRN (09:48)
[2018-12-05] MEDS ORDERED: FLUOXETINE HCL 40 MG PO SCH (10:00)
[2018-12-05] MEDS ORDERED: Fluticasone Propionate Nasal Spray 16 GM Bottle NASBOTH SCH (10:00)
--- NOTE | 2018-12-05 10:44 | PCM.PN ---
- General Info Date of Service: 12/05/18 Admission Dx/Problem (Free Text): Admission Diagnosis/Problem Admission Diagnosis/Problem Ileus Subjective Update: Pt seen and examined Abdominal pain is improved. No nausea or vomiting Patient passing gas and had small BM overnight PE reveals good bowel sounds Functional Status: Reports: Pain Controlled - Review of Systems General: Reports: No Symptoms. Denies: Fever HEENT: Reports: No Symptoms Pulmonary: Reports: No Symptoms Cardiovascular: Reports: No Symptoms Gastrointestinal: Reports: No Symptoms Genitourinary: Reports: No Symptoms Musculoskeletal: Reports: No Symptoms Skin: Reports: No Symptoms Neurological: Reports: No Symptoms - Patient Data Vitals - Most Recent: Last Vital Signs Temp 36.5 C 12/05/18 07:14 Pulse 71 12/05/18 07:14 Resp 17 12/05/18 07:14 BP 139/78 12/05/18 09:22 Pulse Ox 98 12/05/18 07:14 Weight - Most Recent: 109.406 kg I&O - Last 24 Hours: Intake & Output 12/04/18 12/05/18 12/05/18 22:59 06:59 14:59 Intake Total 1700 1255 Output Total 475 550 Balance 1225 705 Lab Results Last 24 Hours: Laboratory Results - last 24 hr 12/05/18 12/05/18 Range/Units 06:06 06:06 WBC 8.6 (5.0-10.0) 10^3/uL RBC 3.81 L (4.2-5.4) 10^6/uL Hgb 12.1 (12.0-16.0) g/dL Hct 35.3 L (37.0-47.0) % MCV 92.7 (80-100) fL MCH 31.8 (27.0-34.0) pg MCHC 34.3 (33.0-35.0) g/dL Plt Count 223 (150-450) 10^3/uL Sodium 140 (135-145) mmol/L Potassium 3.6 (3.6-5.0) mmol/L Chloride 109 (101-111) mmol/L Carbon Dioxide 25.0 (21.0-31.0) mmol/L Anion Gap 9.6 BUN 11 (7-18) mg/dL Creatinine 0.6 (0.6-1.3) mg/dL Est Cr Clr Drug Dosing 117.57 mL/min Estimated GFR (MDRD) > 60 Glucose 136 H (74-105) mg/dL Calcium 8.1 L (8.4-10.2) mg/dl Med Orders - Current: Current Medications Acetaminophen (Tylenol) 650 mg PO Q4H PRN PRN Reason: Pain/Fever Albuterol (Proventil Neb Soln) 2.5 mg INH Q6H PRN PRN Reason: breathing Benzocaine (Hurricaine 20% [place]) 0 ml MUCMEM Q1H PRN PRN Reason: Other Last Admin: 12/05/18 06:47 Dose: 1 spray Clonazepam (Klonopin) 0.5 mg PO DAILY PRN PRN Reason: Anxiety Enoxaparin Sodium (Lovenox) 40 mg SUBCUT DAILY [facility] Last Admin: 12/05/18 09:09 Dose: 40 mg Fluticasone Propionate (Flonase) gm NASBOTH DAILY [facility] Dextrose/Sodium Chloride (Dextrose 5%-Normal Saline) 1,000 mls @ 125 mls/hr IV ASDIRECTED [facility] Last Admin: 12/05/18 09:51 Dose: 125 mls/hr Ibuprofen (Motrin) 800 mg PO Q8H PRN PRN Reason: Pain (severe 7-10) Non-Formulary Medication (Fluoxetine Hcl [Prozac]) 40 mg PO DAILY [facility] Ondansetron HCl (Zofran) 4 mg IV Q4H PRN PRN Reason: Nausea/Vomiting Sertraline HCl (Zoloft) 50 mg PO DAILY [facility] Sodium Chloride (Saline Flush) 10 ml FLUSH ASDIRECTED PRN PRN Reason: Keep Vein Open Discontinued Medications Benzocaine (Hurricaine One 20%) 1 each MUCMEM ONETIME ONE Stop: 12/03/18 15:16 Last Admin: 12/03/18 16:17 Dose: 1 each Benzocaine (Hurricaine 20% [place]) 0 ml MUCMEM TID PRN PRN Reason: Throat pain Last Admin: 12/03/18 19:40 Dose: 1 spray Potassium Chloride 10 meq/ (Premix) 100 mls @ 100 mls/hr IV Q1H TANISHA Stop: 12/04/18 12:59 Last Admin: 12/04/18 09:12 Dose: Not Given Potassium Chloride 20 meq/ (Premix) 100 mls @ 100 mls/hr IV Q2H TANISHA Stop: 12/04/18 11:59 Last Admin: 12/04/18 12:15 Dose: 50 mls/hr Iopamidol (Isovue-300 (61%)) 100 ml IVPUSH ONETIME ONE Stop: 12/03/18 11:32 Last Admin: 12/03/18 11:53 Dose: 100 ml Ketorolac Tromethamine (Toradol) 15 mg IVPUSH Q6H PRN PRN Reason: Pain Stop: 12/08/18 15:01 Last Admin: 12/05/18 01:36 Dose: 15 mg Lorazepam (Ativan) 0.5 mg IVPUSH ONETIME ONE Stop: 12/05/18 00:01 Last Admin: 12/04/18 23:04 Dose: Not Given Magnesium Citrate (Citrate Of Magnesia) 296 ml PO ONETIME ONE Stop: 12/03/18 10:28 Last Admin: 12/03/18 10:36 Dose: 296 ml Sodium Chloride (Saline Flush) 10 ml FLUSH ASDIRECTED PRN PRN Reason: Keep Vein Open - Exam General: Alert, Oriented HEENT: Pupils Equal, Pupils Reactive Neck: Supple Lungs: Clear to Auscultation, Normal Respiratory Effort Cardiovascular: Regular Rate, Regular Rhythm GI/Abdominal Exam: Normal Bowel Sounds, Soft, Non-Tender, No Organomegaly, Other (regular bowel sounds). No: Guarding, Rigid Extremities: Normal Inspection, Normal Range of Motion, Non-Tender, No Pedal Edema - Problem List Review Problem List Initiated/Reviewed/Updated: Yes - My Orders Last 24 Hours: My Active Orders 12/05/18 09:20 NG [Nasogastric Orogastric Tube Removal] [OM.PC] Routine 12/05/18 09:48 Acetaminophen [Tylenol] 650 mg PO Q4H PRN ClonazePAM [KlonoPIN] 0.5 mg PO DAILY PRN Ibuprofen [Motrin] 800 mg PO Q8H PRN 12/05/18 10:00 FLUoxetine HCl [Prozac] 40 mg PO DAILY Fluticasone Propionate [Flonase] DOSE gm NASBOTH DAILY Sertraline [Zoloft] 50 mg PO DAILY 12/05/18 Lunch General [Regular Diet] [DIET] 12/06/18 05:11 BASIC METABOLIC PANEL,BMP [CHEM] AM CBC W/O DIFF,HEMOGRAM [HEME] AM - Plan Plan:: #Abdominal pain, improved Had CT abd in the ED, shows increased intraluminal colonic fluid with air/fluid level. No appendicitis, no pancreatitis, no transition point. Unclear etiology: Lipase and amylase are normal. Possible ileus, ?Gita's syndrome Abdominal pain is improved. No nausea or vomiting Patient passing gas and had small BM overnight PE reveals good bowel sounds REmove NG tube Advance diet as tolerated Continue IV fluids Resume home meds #DVT ppx SC lovenox
[2018-12-05] MEDS ORDERED: Sertraline 50 MG Tab **OWN MED PO SCH (12:00)
--- NOTE | 2018-12-05 13:56 | PCM.DCSUM1 ---
Discharge Summary - Hospital Course Free Text/Narrative:: 43 yo F with Hx of depression/anxiety disorder, reactive airway disease, who presents with abdominal pain. Abdominal pain started two days ago, located periumbilically, 8/10 intensity, constant, dull ache, no relieving or aggravating factors. Associated with nausea , dry retching. No fever, no chest pain, no SOB, no urinary symptoms. Has hx of abdominal surgery - cholecystectomy six months ago. Had CT abd in the ED, shows increased intraluminal colonic fluid with air/fluid level. No appendicitis, no pancreatitis, no transition point. Unclear etiology: Lipase and amylase are normal. Possible ileus, ?Houston's syndrome. NG tube was placed and connected to low intermittent suction. Got IVF for hydration, strict NPO. Abdominal pain is improved. nausea and vomiting subsided. Patient resumed passing gas and had small BM overnight on Day 3 of admission. Physical exam revealed good bowel sounds. NG tube was removed. Diet was advanced and the patient tolerated it well. OK to discharge home. Follow up with PCP Diagnosis: Stroke: No Modified [place] Scale: No Symptoms at All Modified Jack Scale Score: 0 - Discharge Data Discharge Date: 12/05/18 Discharge Disposition: Home, Self-Care 01 Condition: Stable - Referral to Home Health Primary Care Physician: PCP None - Patient Instructions Diet: Usual Diet as Tolerated Activity: As Tolerated - Discharge Plan *PRESCRIPTION DRUG MONITORING PROGRAM REVIEWED*: No *COPY OF PRESCRIPTION DRUG MONITORING REPORT IN PATIENT SARY: No Home Medications: Home Meds Albuterol [Ventolin HFA] 1 inh INH Q6H PRN 02/14/18 [History] ClonazePAM [KlonoPIN] 0.5 mg PO DAILY PRN 02/14/18 [History] Sertraline [Zoloft] 50 mg PO DAILY 11/21/18 [History] Albuterol [Proventil Neb Soln] 2.5 mg .XX Q4HR PRN 12/03/18 [History] Fluticasone Propionate [Flonase] 2 sprays NASBOTH DAILY 12/03/18 [History] Ibuprofen 800 mg PO Q8H PRN 12/03/18 [History] Ondansetron [Zofran] 4 mg PO Q8H PRN 12/03/18 [History] Forms: ED Department Discharge Referrals: PCP,None [Primary Care Provider] - - Discharge Summary/Plan Comment DC Time >30 min.: Yes - General Info Date of Service: 12/05/18 Admission Dx/Problem (Free Text: Admission Diagnosis/Problem Admission Diagnosis/Problem Ileus Subjective Update: Pt seen and examined Abdominal pain is improved. No nausea or vomiting Patient passing gas and had small BM overnight PE reveals good bowel sounds - Review of Systems General: Reports: No Symptoms HEENT: Reports: No Symptoms Pulmonary: Reports: No Symptoms Cardiovascular: Reports: No Symptoms Gastrointestinal: Reports: No Symptoms Genitourinary: Reports: No Symptoms Musculoskeletal: Reports: No Symptoms Skin: Reports: No Symptoms Neurological: Reports: No Symptoms - Patient Data Vitals - Most Recent: Last Vital Signs Temp 36.5 C 12/05/18 11:58 Pulse 82 12/05/18 11:58 Resp 18 12/05/18 11:58 BP 147/78 H 12/05/18 11:58 Pulse Ox 98 12/05/18 11:58 Weight - Most Recent: 109.406 kg I&O - Last 24 hours: Intake & Output 12/04/18 12/05/18 12/05/18 22:59 06:59 14:59 Intake Total 1700 1455 Output Total 475 550 Balance 1225 905 Lab Results - Last 24 hrs: Laboratory Results - last 24 hr 12/05/18 12/05/18 Range/Units 06:06 06:06 WBC 8.6 (5.0-10.0) 10^3/uL RBC 3.81 L (4.2-5.4) 10^6/uL Hgb 12.1 (12.0-16.0) g/dL Hct 35.3 L (37.0-47.0) % MCV 92.7 (80-100) fL MCH 31.8 (27.0-34.0) pg MCHC 34.3 (33.0-35.0) g/dL Plt Count 223 (150-450) 10^3/uL Sodium 140 (135-145) mmol/L Potassium 3.6 (3.6-5.0) mmol/L Chloride 109 (101-111) mmol/L Carbon Dioxide 25.0 (21.0-31.0) mmol/L Anion Gap 9.6 BUN 11 (7-18) mg/dL Creatinine 0.6 (0.6-1.3) mg/dL Est Cr Clr Drug Dosing 117.57 mL/min Estimated GFR (MDRD) > 60 Glucose 136 H (74-105) mg/dL Calcium 8.1 L (8.4-10.2) mg/dl Med Orders - Current: Current Medications Acetaminophen (Tylenol) 650 mg PO Q4H PRN PRN Reason: Pain 1-3/Fever Albuterol (Proventil Neb Soln) 2.5 mg INH Q6H PRN PRN Reason: breathing Benzocaine (Hurricaine 20% Marlin) 0 ml MUCMEM Q1H PRN PRN Reason: Other Last Admin: 12/05/18 06:47 Dose: 1 spray Clonazepam (Klonopin) 0.5 mg PO DAILY PRN PRN Reason: Anxiety Last Admin: 12/05/18 12:11 Dose: 0.5 mg Enoxaparin Sodium (Lovenox) 40 mg SUBCUT DAILY COUNT INCLUDES THE [facility] Last Admin: 12/05/18 09:09 Dose: 40 mg Fluticasone Propionate (Flonase) 0 gm NASBOTH DAILY COUNT INCLUDES THE [facility] Last Admin: 12/05/18 13:06 Dose: Not Given Dextrose/Sodium Chloride (Dextrose 5%-Normal Saline) 1,000 mls @ 125 mls/hr IV ASDIRECTED COUNT INCLUDES THE [facility] Last Admin: 12/05/18 09:51 Dose: 125 mls/hr Ibuprofen (Motrin) 800 mg PO Q8H PRN PRN Reason: Pain (severe 7-10) Last Admin: 12/05/18 12:11 Dose: 800 mg Non-Formulary Medication (Fluoxetine Hcl [Prozac]) 40 mg PO DAILY COUNT INCLUDES THE [facility] Ondansetron HCl (Zofran) 4 mg IV Q4H PRN PRN Reason: Nausea/Vomiting Sertraline HCl (Zoloft) 50 mg PO DAILY COUNT INCLUDES THE [facility] Last Admin: 12/05/18 12:14 Dose: 50 mg Sodium Chloride (Saline Flush) 10 ml FLUSH ASDIRECTED PRN PRN Reason: Keep Vein Open Discontinued Medications Benzocaine (Hurricaine One 20%) 1 each MUCMEM ONETIME ONE Stop: 12/03/18 15:16 Last Admin: 12/03/18 16:17 Dose: 1 each Benzocaine (Hurricaine 20% Marlin) 0 ml MUCMEM TID PRN PRN Reason: Throat pain Last Admin: 12/03/18 19:40 Dose: 1 spray Potassium Chloride 10 meq/ (Premix) 100 mls @ 100 mls/hr IV Q1H TANISHA Stop: 12/04/18 12:59 Last Admin: 12/04/18 09:12 Dose: Not Given Potassium Chloride 20 meq/ (Premix) 100 mls @ 100 mls/hr IV Q2H TANISHA Stop: 12/04/18 11:59 Last Admin: 12/04/18 12:15 Dose: 50 mls/hr Iopamidol (Isovue-300 (61%)) 100 ml IVPUSH ONETIME ONE Stop: 12/03/18 11:32 Last Admin: 12/03/18 11:53 Dose: 100 ml Ketorolac Tromethamine (Toradol) 15 mg IVPUSH Q6H PRN PRN Reason: Pain Stop: 12/08/18 15:01 Last Admin: 12/05/18 01:36 Dose: 15 mg Lorazepam (Ativan) 0.5 mg IVPUSH ONETIME ONE Stop: 12/05/18 00:01 Last Admin: 12/04/18 23:04 Dose: Not Given Magnesium Citrate (Citrate Of Magnesia) 296 ml PO ONETIME ONE Stop: 12/03/18 10:28 Last Admin: 12/03/18 10:36 Dose: 296 ml Sodium Chloride (Saline Flush) 10 ml FLUSH ASDIRECTED PRN PRN Reason: Keep Vein Open - Exam General: Reports: Alert, Oriented HEENT: Reports: Pupils Equal, Pupils Reactive Neck: Reports: Supple Lungs: Reports: Clear to Auscultation, Normal Respiratory Effort Cardiovascular: Reports: Regular Rate, Regular Rhythm GI/Abdominal Exam: Normal Bowel Sounds, Soft, Non-Tender, No Organomegaly, No Distention Extremities: Normal Inspection, Normal Range of Motion, Non-Tender, No Pedal Edema Skin: Reports: Warm, Dry, Intact Neurological: Reports: No New Focal Deficit
== END 2018-12-05 14:35 | disposition home or self-care (01) ==
LOC: DL.ED 08:50 → DL.MS 12:30 → UNDOADMOB 12:38 → DL.MS 12:38
PROVIDERS: ADMIT Hospitalist; ATTEND Hospitalist
DX: R10.33 Periumbilical pain (principal); R11.2 Nausea with vomiting, unspecified; J45.909 Unspecified asthma, uncomplicated; F32.9 Major depressive disorder, single episode, unspecified; F41.9 Anxiety disorder, unspecified; E66.9 Obesity, unspecified; F17.210 Nicotine dependence, cigarettes, uncomplicated; Z90.49 Acquired absence of other specified parts of digestive tract; Z79.899 Other long term (current) drug therapy; Z68.37 Body mass index [BMI] 37.0-37.9, adult
CPT/HCPCS: 36415; 74018; 74019; 74177; 80048; 80053; 80305; 81003; 81025; 82150; 83690; 85025; 85027; 96361; 96365; 96366; 96372; 96375; 96376; 99285; A9270; G0378; J1650; J1885; J2060; J3480; J7042; Q9967

== ENCOUNTER 2019-04-23 10:57 | Emergency (ER) | payer OTHER ==
--- NOTE | 2019-04-23 11:31 | EDM.PDOC ---
<Shiv Craig - Last Filed: 04/23/19 12:39> ED HPI GENERAL MEDICAL PROBLEM - General Chief Complaint: Respiratory Problem Stated Complaint: CANT BREATH ASTHMA Time Seen by Provider: 04/23/19 11:26 Source of Information: Reports: Patient, RN, RN Notes Reviewed History Limitations: Reports: No Limitations - History of Present Illness INITIAL COMMENTS - FREE TEXT/NARRATIVE: Patient presents to the ED with complaints of trouble breathing and chest tightness. She has a history of asthma and has been having cold symptoms since Sunday. She has been using her nebulizer treatment daily which has been helping up until today. She reports only having relief for a few minutes after her last treatment today at 1030. She is also complaining of itching all over her body but does not have a rash. Onset Date: 04/18/19 Location: Reports: Chest Quality: Reports: Pressure Severity: Moderate Improves with: Reports: Medication (nebulizer treatment) Worsens with: Reports: None Associated Symptoms: Reports: Shortness of Breath. 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) Chest Pain Score (Numeric/FACES): 8 - Related Data Allergies Allergy/AdvReac Type Severity Reaction Status Date / Time No Known Allergies Allergy Verified 04/23/19 11:38 Home Meds: Home Meds Albuterol [Ventolin HFA] 1 inh INH Q6H PRN 02/14/18 [History] ClonazePAM [KlonoPIN] 0.5 mg PO DAILY PRN 02/14/18 [History] Sertraline [Zoloft] 50 mg PO DAILY 11/21/18 [History] Albuterol [Proventil Neb Soln] 2.5 mg .XX Q4HR PRN 12/03/18 [History] Fluticasone Propionate [Flonase] 2 sprays NASBOTH DAILY 12/03/18 [History] Ibuprofen 800 mg PO Q8H PRN 12/03/18 [History] Ondansetron [Zofran] 4 mg PO Q8H PRN 12/03/18 [History] Past Medical History HEENT History: Reports: None Cardiovascular History: Reports: None Respiratory History: Reports: Asthma, Bronchitis, Recurrent Gastrointestinal History: Reports: Cholelithiasis Genitourinary History: Reports: Renal Disease, Other (See Below) Other Genitourinary History: unknown kidney disease [employer] PRINCIPAL History: Reports: , Spontaneous Musculoskeletal History: Reports: Fracture Neurological History: Reports: Brain Injury, Concussion Psychiatric History: Reports: Anxiety, Depression, PTSD, Suicide Attempt Endocrine/Metabolic History: Reports: Obesity/BMI 30+, Other (See Below) Other Endocrine/Metabolic History: currently testing thyroid and T4 levels, questioning hashimotos Hematologic History: Reports: Anemia Immunologic History: Reports: None Oncologic (Cancer) History: Reports: None Dermatologic History: Reports: Other (See Below) Other Dermatologic History: cysts - Infectious Disease History Infectious Disease History: Reports: Chicken Pox - Past Surgical History Head Surgeries/Procedures: Reports: None HEENT Surgical History: Reports: Tonsillectomy Respiratory Surgical History: Reports: None GI Surgical History: Reports: Cholecystectomy Neurological Surgical History: Reports: None Musculoskeletal Surgical History: Reports: Other (See Below) Other Musculoskeletal Surgeries/Procedures:: hx of fractured ankle Social & Family History - Family History Family Medical History: Noncontributory - Caffeine Use Caffeine Use: Reports: Coffee, Energy Drinks, Soda - Living Situation & Occupation Living situation: Reports: with Significant Other, with Family ED ROS GENERAL - Review of Systems Review Of Systems: See Below Constitutional: Reports: Fever. Denies: Chills, Weakness, Fatigue HEENT: Reports: No Symptoms Respiratory: Reports: Shortness of Breath, Wheezing. Denies: Cough Cardiovascular: Denies: Chest Pain, Edema, Lightheadedness, Palpitations, Syncope Endocrine: Reports: No Symptoms GI/Abdominal: Denies: Abdominal Pain, Constipation, Diarrhea, Decreased Appetite , Difficulty Swallowing, Nausea, Vomiting : Denies: Dysuria, Flank Pain, Frequency, Urgency Musculoskeletal: Reports: No Symptoms Skin: Denies: Cyanosis, Diaphoresis, Rash, Erythema, Change in Color, Urticaria Neurological: Denies: Confusion, Dizziness, Headache, Syncope, Trouble Speaking Psychiatric: Reports: Agitation. Denies: Anxiety, Confusion Hematologic/Lymphatic: Reports: No Symptoms Immunologic: Reports: No Symptoms ED EXAM, GENERAL - Physical Exam Exam: See Below Exam Limited By: No Limitations General Appearance: Alert, Anxious, Moderate Distress Nose: Normal Inspection, Normal Mucosa, No Blood Throat/Mouth: Normal Inspection, Normal Lips, Normal Teeth, Normal Gums, Normal Oropharynx, Normal Voice Head: Atraumatic, Normocephalic Neck: Normal Inspection, Supple, Non-Tender, Full Range of Motion Respiratory/Chest: Respiratory Distress, Decreased Breath Sounds, Wheezing Cardiovascular: Normal Peripheral Pulses, Regular Rate, Rhythm, No Edema, No Gallop, No JVD, No Murmur, No Rub GI/Abdominal: Normal Bowel Sounds, Soft, Non-Tender, No Organomegaly, No Distention, No Abnormal Bruit, No Mass (Female) Exam: Deferred Rectal (Female) Exam: Deferred Neurological: Alert, Oriented, CN II-XII Intact, Normal Cognition, Normal Gait, Normal Reflexes, No Motor/Sensory Deficits Psychiatric: Normal Affect, Normal Mood Skin Exam: Warm, Dry, Intact, Normal Color, No Rash Lymphatic: No Adenopathy Course - Vital Signs Last Recorded V/S: Last Vital Signs Temp 97.2 F 04/23/19 12:50 Pulse 74 04/23/19 12:50 Resp 22 H 04/23/19 12:50 BP 124/61 04/23/19 12:50 Pulse Ox 96 04/23/19 12:50 - Orders/Labs/Meds Orders: Active Orders 24 hr Category Date Time Status Peripheral IV Care [RC] . DIRECTED Care 04/23/19 11:34 Active RT Aerosol Therapy [RC] ASDIRECTED Care 04/23/19 11:34 Active Chest 2V [CR] Urgent Exams 04/23/19 12:34 Taken Sodium Chloride 0.9% [Saline Flush] Med 04/23/19 11:34 Active 10 ml FLUSH ASDIRECTED PRN Peripheral IV Insertion Adult [OM.PC] Stat Oth 04/23/19 11:34 Ordered Medication Orders Sodium Chloride (Saline Flush) 10 ml FLUSH ASDIRECTED PRN PRN Reason: Keep Vein Open Last Admin: 04/23/19 11:30 Dose: 10 ml Labs: Influenza A&B: Negative Meds: Medications Generic Name Dose Route Start Last Admin Trade Name Freq PRN Reason Stop Dose Admin Sodium Chloride 10 ml 04/23/19 11:34 04/23/19 11:30 Saline Flush FLUSH 10 ml ASDIRECTED PRN Administration Keep Vein Open Discontinued Medications Generic Name Dose Route Start Last Admin Trade Name Freq PRN Reason Stop Dose Admin Albuterol 2.5 mg 04/23/19 11:34 04/23/19 12:03 Proventil Neb Soln NEB 04/23/19 11:35 2.5 mg ONETIME ONE Administration Albuterol/Ipratropium 3 ml 04/23/19 11:34 04/23/19 11:43 Duoneb 3.0-0.5 Mg/3 Ml NEB 04/23/19 11:35 3 ml ONETIME ONE Administration Magnesium Sulfate 100 mls @ 200 mls/hr 04/23/19 11:34 04/23/19 11:49 Magnesium Sulfate In Water Premix IV 04/23/19 12:03 200 mls/hr ONETIME ONE Administration Methylprednisolone Sodium Succinate 125 mg 04/23/19 11:34 04/23/19 11:46 Solu-Medrol IVPUSH 04/23/19 11:35 125 mg ONETIME ONE Administration Departure - Departure Disposition: Home, Self-Care 01 Clinical Impression: Exacerbation of asthma - Discharge Information Instructions: Asthma Attack, Steps to Quit Smoking, [id number] Forms: ED Department Discharge Additional Instructions: Rx: Prednisone 20mg Use Albuterol nebulizer every 4 hours until improved. Quit smoking. Follow up in clinic in 3 to 4 days for recheck. Sepsis Event Note - Focused Exam Vital Signs: Vital Signs Temp Pulse Resp BP Pulse Ox Pulse Ox 04/23/19 12:50 97.2 F 74 22 H 124/61 96 04/23/19 12:03 72 98 04/23/19 11:34 68 95 04/23/19 11:12 96.9 F 64 28 H 133/86 96 Date Exam was Performed: 04/23/19 Time Exam was Performed: 12:39 - My Orders Last 24 Hours: My Active Orders 04/23/19 11:34 Peripheral IV Care [RC] . DIRECTED RT Aerosol Therapy [RC] ASDIRECTED Sodium Chloride 0.9% [Saline Flush] 10 ml FLUSH ASDIRECTED PRN Peripheral IV Insertion Adult [OM.PC] Stat - Assessment/Plan Last 24 Hours: My Active Orders 04/23/19 11:34 Peripheral IV Care [RC] . DIRECTED RT Aerosol Therapy [RC] ASDIRECTED Sodium Chloride 0.9% [Saline Flush] 10 ml FLUSH ASDIRECTED PRN Peripheral IV Insertion Adult [OM.PC] Stat <Toney Tsai - Last Filed: 04/23/19 12:57> Social & Family History - Tobacco Use Smoking Status *Q: Current Every Day Smoker Tobacco Use Within Last Twelve Months: Cigarettes Course - Radiology Interpretation Free Text/Narrative:: Chest XR: no focal infiltrates, see Rad. report. - Re-Assessments/Exams Free Text/Narrative Re-Assessment/Exam: 04/23/19 12:56 I personally performed or re-performed the physical examination and medical decision making. I have verified all student documentation or findings, including history, physical exam and/or medical decision making. Departure - Departure Time of Disposition: 12:56 Condition: Good - Discharge Information *PRESCRIPTION DRUG MONITORING PROGRAM REVIEWED*: Not Applicable *COPY OF PRESCRIPTION DRUG MONITORING REPORT IN PATIENT SARY: Not Applicable Sepsis Event Note - Focused Exam Date Exam was Performed: 04/23/19 Time Exam was Performed: 12:54
[2019-04-23] MEDS ORDERED: methylPREDNISolone Sodium Succinate 125 MG/2 ML SDV IVPUSH ONE (11:34)
[2019-04-23] MEDS ORDERED: Albuterol/Ipratropium 3.0-0.5 MG/3 ML Neb Soln NEB ONE (11:34)
[2019-04-23] MEDS ORDERED: Albuterol 0.083% 2.5 MG/3 ML Neb Soln NEB ONE (11:34)
[2019-04-23] MEDS ORDERED: Magnesium Sulfate/Water 100 ML IV ONE (11:34)
[2019-04-23] MEDS ORDERED: Sodium Chloride 0.9% 10 ML Syringe FLUSH PRN (11:34)
== END 2019-04-23 13:08 | disposition home or self-care (01) ==
LOC: DL.ED 10:57
DX: J45.901 Unspecified asthma with (acute) exacerbation (principal); F41.9 Anxiety disorder, unspecified; F32.9 Major depressive disorder, single episode, unspecified; F17.210 Nicotine dependence, cigarettes, uncomplicated; E66.9 Obesity, unspecified; Z68.36 Body mass index [BMI] 36.0-36.9, adult; Z79.899 Other long term (current) drug therapy
CPT/HCPCS: 71046; 87804; 94640; 96365; 96375; 99285; J2930; J3475; J7613-GY; J7620-GY

== ENCOUNTER 2019-06-03 21:08 | Emergency (ER) | payer MEDICAID, OTHER ==
[2019-06-03] MEDS ORDERED: Clindamycin HCl 150 MG Cap PO ONE (21:20)
[2019-06-03] MEDS ORDERED: Acetaminophen/HYDROcodone 325-10 MG Tab PO ONE (21:20)
--- NOTE | 2019-06-03 21:27 | EDM.PDOC ---
ED HPI GENERAL MEDICAL PROBLEM - General Chief Complaint: Skin Complaint Stated Complaint: SIST TOP OF HEAD Time Seen by Provider: 06/03/19 21:21 Source of Information: Reports: Patient History Limitations: Reports: No Limitations - History of Present Illness INITIAL COMMENTS - FREE TEXT/NARRATIVE: states had a cyste on top of head on-off for awhile tonight was scratching her head and it popped and bunch of blood and pus came out all over her hair and now it hurts to even touch it. Anterior Head Pain Score (Numeric/FACES): 9 - Related Data Allergies Allergy/AdvReac Type Severity Reaction Status Date / Time No Known Allergies Allergy Verified 04/23/19 11:38 Home Meds: Home Meds Albuterol [Ventolin HFA] 1 inh INH Q6H PRN 02/14/18 [History] ClonazePAM [KlonoPIN] 0.5 mg PO DAILY PRN 02/14/18 [History] Sertraline [Zoloft] 50 mg PO DAILY 11/21/18 [History] Albuterol [Proventil Neb Soln] 2.5 mg .XX Q4HR PRN 12/03/18 [History] Fluticasone Propionate [Flonase] 2 sprays NASBOTH DAILY 12/03/18 [History] Ibuprofen 800 mg PO Q8H PRN 12/03/18 [History] Ondansetron [Zofran] 4 mg PO Q8H PRN 12/03/18 [History] Fluticasone/Salmeterol [Advair 250-50 Diskus] 1 inh INH ASDIRECTED 06/03/19 [ History] Past Medical History HEENT History: Reports: None Cardiovascular History: Reports: None Respiratory History: Reports: Asthma, Bronchitis, Recurrent Gastrointestinal History: Reports: Cholelithiasis Genitourinary History: Reports: Renal Disease, Other (See Below) Other Genitourinary History: unknown kidney 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: , 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 Musculoskeletal History: Reports: Fracture Neurological History: Reports: Brain Injury, Concussion Psychiatric History: Reports: Anxiety, Depression, PTSD, Suicide Attempt Endocrine/Metabolic History: Reports: Obesity/BMI 30+, Other (See Below) Other Endocrine/Metabolic History: currently testing thyroid and T4 levels, questioning hashimotos Hematologic History: Reports: Anemia Immunologic History: Reports: None Oncologic (Cancer) History: Reports: None Dermatologic History: Reports: Other (See Below) Other Dermatologic History: cysts - Infectious Disease History Infectious Disease History: Reports: Chicken Pox - Past Surgical History Head Surgeries/Procedures: Reports: None HEENT Surgical History: Reports: Tonsillectomy Respiratory Surgical History: Reports: None GI Surgical History: Reports: Cholecystectomy Neurological Surgical History: Reports: None Musculoskeletal Surgical History: Reports: Other (See Below) Other Musculoskeletal Surgeries/Procedures:: hx of fractured ankle Social & Family History - Family History Family Medical History: Noncontributory - Caffeine Use Caffeine Use: Reports: Coffee, Energy Drinks, Soda - Living Situation & Occupation Living situation: Reports: with Significant Other, with Family ED ROS GENERAL - Review of Systems Review Of Systems: Comprehensive ROS is negative, except as noted in HPI. ED EXAM, SKIN/RASH Exam: See Below Exam Limited By: No Limitations General Appearance: Alert, WD/WN, Anxious Ears: Hearing Grossly Normal Throat/Mouth: Normal Voice, No Airway Compromise Head: Atraumatic Neck: Non-Tender, Full Range of Motion Respiratory/Chest: No Respiratory Distress Cardiovascular: Regular Rate, Rhythm GI/Abdominal: Soft, Non-Tender Neurological: Alert, Oriented, Normal Cognition, Normal Gait, No Motor/Sensory Deficits Psychiatric: Anxious Skin: Warm, Normal Color Location, Skin: Head Characteristics: Erythematous Associated features: Tenderness, Inflammation. No: Lymphangitis, Crusting, Weeping Lymphatic: No Adenopathy Course - Vital Signs Last Recorded V/S: Last Vital Signs Temp 36.1 C 06/03/19 21:29 Pulse 83 06/03/19 21:29 Resp 16 06/03/19 21:29 BP 133/74 06/03/19 21:29 Pulse Ox 97 06/03/19 21:29 - Orders/Labs/Meds Meds: Medications Discontinued Medications Generic Name Dose Route Start Last Admin Trade Name Freq PRN Reason Stop Dose Admin Hydrocodone Bitart/Acetaminophen 1 tab 06/03/19 21:20 06/03/19 21:27 [place] 325-10 Mg PO 06/03/19 21:21 1 tab ONETIME ONE Administration Clindamycin HCl 300 mg 06/03/19 21:20 06/03/19 21:27 Cleocin PO 06/03/19 21:21 300 mg ONETIME ONE Administration Departure - Departure Time of Disposition: 21:30 Disposition: Home, Self-Care 01 Condition: Good Clinical Impression: Boil of head or scalp - Discharge Information Instructions: Skin Abscess, [id number] Referrals: Dariana Bush MD [Primary Care Provider] - Forms: ED Department Discharge Additional Instructions: 1) keep area clean and dry 2) avoid scratching area 3) follow up at clinic 4) try hot compress to area rx given; clindamycin 150mg qid x 40 Sepsis Event Note - Focused Exam Date Exam was Performed: 06/05/19 Time Exam was Performed: 23:45
== END 2019-06-03 21:32 | disposition home or self-care (01) ==
LOC: DL.ED 21:08
DX: L02.821 Furuncle of head [any part, except face] (principal); J45.909 Unspecified asthma, uncomplicated; F41.9 Anxiety disorder, unspecified; F32.9 Major depressive disorder, single episode, unspecified; E66.9 Obesity, unspecified; Z68.41 Body mass index [BMI] 40.0-44.9, adult; Z79.899 Other long term (current) drug therapy
CPT/HCPCS: 99282; A9270-GY

== ENCOUNTER 2019-09-29 19:41 | Emergency (ER) | payer MEDICAID, OTHER ==
[2019-09-29] MEDS ORDERED: Acetaminophen/HYDROcodone 325-10 MG Tab PO ONE ×2 (19:42→19:56)
[2019-09-29] MEDS ORDERED: cefTRIAXone 1 GM in Sodium Chloride 0.9% 50 ML IV ONE (20:33)
[2019-09-29 20:55] LABS: ANION GAP 11.8 mEq/L (7-13); CHLORIDE,CL 99 mmol/L (98-107); SODIUM,NA 136 mmol/L (136-145)
[2019-09-29] MEDS ORDERED: Acetaminophen/HYDROcodone 325-10 MG Tab ONE (21:13)
--- NOTE | 2019-09-29 21:17 | EDM.PDOC ---
ED HPI GENERAL MEDICAL PROBLEM - General Chief Complaint: ENT Problem Stated Complaint: SACK BEHIND EAR, WILL NOT COMEOUT. PAIN Time Seen by Provider: 09/29/19 19:55 Source of Information: Reports: Patient History Limitations: Reports: No Limitations - History of Present Illness INITIAL COMMENTS - FREE TEXT/NARRATIVE: Large cyst for a couple days, painful getting larger, swelling down behind left ear. Gets sweats and chills. Scant drainage from cyst. Has been using warm compresses to area. Hx of cysts in scalp area in past. Last one month ago. Denies MRSA hx. - Related Data Allergies Allergy/AdvReac Type Severity Reaction Status Date / Time No Known Allergies Allergy Verified 04/23/19 11:38 Home Meds: Home Meds Albuterol [Ventolin HFA] 1 inh INH Q6H PRN 02/14/18 [History] ClonazePAM [KlonoPIN] 0.5 mg PO DAILY PRN 02/14/18 [History] Sertraline [Zoloft] 50 mg PO DAILY 11/21/18 [History] Albuterol [Proventil Neb Soln] 2.5 mg .XX Q4HR PRN 12/03/18 [History] Fluticasone Propionate [Flonase] 2 sprays NASBOTH DAILY 12/03/18 [History] Ibuprofen 800 mg PO Q8H PRN 12/03/18 [History] Ondansetron [Zofran] 4 mg PO Q8H PRN 12/03/18 [History] Fluticasone Propion/Salmeterol [Advair 250-50 Diskus] 1 inh INH ASDIRECTED 06/03/19 [History] Past Medical History HEENT History: Reports: None Cardiovascular History: Reports: None Respiratory History: Reports: Asthma, Bronchitis, Recurrent Gastrointestinal History: Reports: Cholelithiasis Genitourinary History: Reports: Renal Disease, Other (See Below) Other Genitourinary History: unknown kidney disease [employer] History: Reports: , Spontaneous Musculoskeletal History: Reports: Fracture Neurological History: Reports: Brain Injury, Concussion Psychiatric History: Reports: Anxiety, Depression, PTSD, Suicide Attempt Endocrine/Metabolic History: Reports: Obesity/BMI 30+, Other (See Below) Other Endocrine/Metabolic History: currently testing thyroid and T4 levels, questioning hashimotos Hematologic History: Reports: Anemia Immunologic History: Reports: None Oncologic (Cancer) History: Reports: None Dermatologic History: Reports: Other (See Below) Other Dermatologic History: cysts - Infectious Disease History Infectious Disease History: Reports: Chicken Pox - Past Surgical History Head Surgeries/Procedures: Reports: None HEENT Surgical History: Reports: Tonsillectomy Respiratory Surgical History: Reports: None GI Surgical History: Reports: Cholecystectomy Neurological Surgical History: Reports: None Musculoskeletal Surgical History: Reports: Other (See Below) Other Musculoskeletal Surgeries/Procedures:: hx of fractured ankle Social & Family History - Family History Family Medical History: Noncontributory - Caffeine Use Caffeine Use: Reports: Coffee, Energy Drinks, Soda - Living Situation & Occupation Living situation: Reports: with Significant Other, with Family ED ROS GENERAL - Review of Systems Review Of Systems: Comprehensive ROS is negative, except as noted in HPI. ED EXAM, GENERAL - Physical Exam Exam: See Below Exam Limited By: No Limitations General Appearance: Alert, Moderate Distress Eye Exam: Bilateral Eye: EOMI Ears: Normal External Exam, Normal Canal Nose: Normal Inspection Throat/Mouth: Normal Inspection Head: Atraumatic, Other (large plum sized firm cyst left scalp above ear, tender to palpation, 2mm punctate center, light scapping no active discharge. ) Neck: Lymphadenopathy (L) Respiratory/Chest: No Respiratory Distress, Lungs Clear, Normal Breath Sounds Cardiovascular: Normal Peripheral Pulses, Regular Rate, Rhythm GI/Abdominal: Normal Bowel Sounds, Soft, Non-Tender Back Exam: Normal Inspection Extremities: Normal Inspection, Normal Range of Motion Neurological: Alert, Oriented, Normal Cognition Psychiatric: Normal Affect, Anxious Skin Exam: Warm, Dry, Wound/Incision (left arietal scalp) Course - Vital Signs Last Recorded V/S: Last Vital Signs Temp 97.1 F 09/29/19 19:48 Pulse 84 09/29/19 19:48 Resp 20 09/29/19 19:48 BP 149/81 H 09/29/19 19:48 Pulse Ox 98 09/29/19 19:48 - Orders/Labs/Meds Orders: Active Orders 24 hr Category Date Time Status CULTURE BLOOD [BC] Stat Lab 09/29/19 20:10 Received CULTURE BLOOD [BC] Stat Lab 09/29/19 21:20 Received Blood Culture x2 Reflex Set [OM.PC] Stat Oth 09/29/19 19:55 Ordered Labs: Laboratory Tests 09/29/19 09/29/1909/28/20 Range/Units 20:10 20:10 20:10 WBC 9.5 (5.0-10.0) 10^3/uL RBC 4.77 (4.2-5.4) 10^6/uL Hgb 14.8 (12.0-16.0) g/dL Hct 41.5 (37.0-47.0) % MCV 87.0 (80-100) fL MCH 31.0 (27.0-34.0) pg MCHC 35.7 H (33.0-35.0) g/dL Plt Count 236 (150-450) 10^3/uL Neut % (Auto) 53.2 (42.2-75.2) % Lymph % (Auto) 37.8 (20.5-50.1) % [place] % (Auto) 6.8 (2-8) % Eos % (Auto) 1.9 (1.0-3.0) % Baso % (Auto) 0.3 (0.0-1.0) % Sodium 136 (136-145) mmol/L Potassium 3.8 (3.5-5.1) mmol/L Chloride 99 (98-107) mmol/L Carbon Dioxide 29 (21-32) mmol/L Anion Gap 11.8 (7-13) mEq/L BUN 11 (7-18) mg/dL Creatinine 0.82 (0.55-1.02) mg/dL Est Cr Clr Drug Dosing 85.14 mL/min Estimated GFR (MDRD) > 60 BUN/Creatinine Ratio 13.4 (No establ ref range) Glucose 303 H (74-99) mg/dL Lactic Acid 1.6 (0.4-2.0) mmol/L Calcium 9.1 (8.5-10.1) mg/dL Total Bilirubin 0.3 (0.2-1.0) mg/dL AST 31 (15-37) U/L ALT 66 H (14-59) U/L Alkaline Phosphatase 118 H (46-116) U/L Total Protein 7.1 (6.4-8.2) g/dL Albumin 3.8 (3.4-5.0) g/dL Globulin 3.3 Albumin/Globulin Ratio 1.2 HCG, Qual COVID-19 (EMMANUEL) (NEGATIVE) 09/29/19 09/29/19 Range/Units 20:10 20:38 WBC (5.0-10.0) 10^3/uL RBC (4.2-5.4) 10^6/uL Hgb (12.0-16.0) g/dL Hct (37.0-47.0) % MCV (80-100) fL MCH (27.0-34.0) pg MCHC (33.0-35.0) g/dL Plt Count (150-450) 10^3/uL Neut % (Auto) (42.2-75.2) % Lymph % (Auto) (20.5-50.1) % [place] % (Auto) (2-8) % Eos % (Auto) (1.0-3.0) % Baso % (Auto) (0.0-1.0) % Sodium (136-145) mmol/L Potassium (3.5-5.1) mmol/L Chloride (98-107) mmol/L Carbon Dioxide (21-32) mmol/L Anion Gap (7-13) mEq/L BUN (7-18) mg/dL Creatinine (0.55-1.02) mg/dL Est Cr Clr Drug Dosing mL/min Estimated GFR (MDRD) BUN/Creatinine Ratio (No establ ref range) Glucose (74-99) mg/dL Lactic Acid (0.4-2.0) mmol/L Calcium (8.5-10.1) mg/dL Total Bilirubin (0.2-1.0) mg/dL AST (15-37) U/L ALT (14-59) U/L Alkaline Phosphatase (46-116) U/L Total Protein (6.4-8.2) g/dL Albumin (3.4-5.0) g/dL Globulin Albumin/Globulin Ratio HCG, Qual Negative COVID-19 (EMMANUEL) Negative (NEGATIVE) Meds: Medications Discontinued Medications Generic Name Dose Route Start Last Admin Trade Name Freq PRN Reason Stop Dose Admin Hydrocodone Bitart/Acetaminophen 1 tab 09/29/19 19:56 09/29/19 20:04 [place] 325-10 Mg PO 09/29/19 19:57 1 tab ONETIME ONE Administration Hydrocodone Bitart/Acetaminophen Confirm 09/29/19 21:13 09/29/19 21:30 [place] 325-10 Mg Administered 09/29/19 21:14 Not Given Dose 3 tab .ROUTE .STK-MED ONE Ceftriaxone Sodium 1 gm/ 50 mls @ 100 mls/hr 09/29/19 20:33 09/29/19 20:45 Sodium Chloride IV 09/29/19 21:02 100 mls/hr ONETIME ONE Administration - Re-Assessments/Exams Free Text/Narrative Re-Assessment/Exam: 09/30/19 01:55 Dr Hicks here consult, Recommend patient return in am for outpatient management, drainage of cyst. Departure - Departure Time of Disposition: 21:13 Disposition: Home, Self-Care 01 Condition: Good Clinical Impression: Sebaceous cyst - Discharge Information Instructions: Epidermal Cyst, [id number] Forms: ED Department Discharge Additional Instructions: continue warm compress norco 10/325 one every 6 hours as needed for discomfort #3 Return [id number] for surgical excision of cyst tomorrow am Nothing to eat or drink after midnight sips of water only with medications Sepsis Event Note (ED) - Evaluation Sepsis Screening Result: No Definite Risk - Focused Exam Vital Signs: Vital Signs Temp Pulse Resp BP Pulse Ox 09/29/19 19:48 97.1 F 84 20 149/81 H 98 - My Orders Last 24 Hours: My Active Orders 09/29/19 19:55 Blood Culture x2 Reflex Set [OM.PC] Stat 09/29/19 20:10 CULTURE BLOOD [BC] Stat 09/29/19 21:20 CULTURE BLOOD [BC] Stat - Assessment/Plan Last 24 Hours: My Active Orders 09/29/19 19:55 Blood Culture x2 Reflex Set [OM.PC] Stat 09/29/19 20:10 CULTURE BLOOD [BC] Stat 09/29/19 21:20 CULTURE BLOOD [BC] Stat
--- NOTE | 2019-09-30 09:04 | HP ---
INTRODUCTION: This 44-year-old female presents to the emergency room with a several-day history of some swollen painful masses on her scalp behind her ear. She said this is going down into her neck, and she has some surrounding erythema along the posterior mastoid area. ALLERGIES: The patient has no known allergies. CURRENT MEDICATIONS: Zoloft, multiple inhalers like Advair and Proventil, and she takes clonazepam. PRIOR SURGERIES: Include a laparoscopic cholecystectomy, bilateral tubal ligation, and as a followup, a tubal ectopic was then removed. SOCIAL HISTORY: The patient lives here in [facility]. She is currently unemployed and is currently . She has been a smoker but currently has quit. REVIEW OF SYSTEMS: Positive for a long history of asthma. The cardiovascular system is otherwise normal. All other systems are negative. PHYSICAL EXAMINATION: HEENT: Show two 1 cm masses, one posterior to the helix of the ear on the left side and one about 3 or 4 cm further downstream along the lymph node chain. I do not know if this is a separate abscess or a lymph node. They are quite tender to touch, and she has surrounding erythema. Chest: Clear bilaterally. Lungs: Clear bilaterally to auscultation. Heart: Normal sinus rhythm without murmur. Abdomen: Obese. Nontender. No evidence of hernias. Extremities: Normal. Neurologic: Intact. ASSESSMENT: Infected scalp sebaceous cysts x2, left side. PLAN: I have made arrangements for this patient to return at 8 o'clock tomorrow morning to Same-Day Surgery. We will have everything ready then to drain these in the operating room under probably local but at least will need monitored anesthesia care. This will be done as an outpatient. Currently, I got a COVID test, which at this time is pending. [facility] /[id number]
== END 2019-09-29 21:24 | disposition home or self-care (01) ==
LOC: DL.ED 19:41
DX: L72.3 Sebaceous cyst (principal); E66.9 Obesity, unspecified; F41.9 Anxiety disorder, unspecified; F32.9 Major depressive disorder, single episode, unspecified; F43.10 Post-traumatic stress disorder, unspecified; J45.909 Unspecified asthma, uncomplicated; Z79.899 Other long term (current) drug therapy; Z68.41 Body mass index [BMI] 40.0-44.9, adult; Z20.828 Contact with and (suspected) exposure to other viral communicable diseases
CPT/HCPCS: 36415; 80053; 83605; 84703; 85025; 87040; 87635; 96365; 99283; A9270; J0696; J7050; U0002

== ENCOUNTER 2019-09-30 07:46 | Day surgery (SDC) | payer MEDICAID ==
[2019-09-30] MEDS ORDERED: Propofol 200 MG/20 ML SDV IV ONE (07:47)
[2019-09-30] MEDS ORDERED: Midazolam 1 MG/ML 2 ML SDV IV ONE (07:47)
[2019-09-30] MEDS ORDERED: Lidocaine 1% with EPINEPHrine 1:100,000 20 ML MDV ONE ×2 (07:47→08:04)
[2019-09-30] MEDS ORDERED: fentaNYL 100 MCG/2 ML SDV IV ONE ×2 (07:47)
[2019-09-30] MEDS ORDERED: Ondansetron 4 MG/2 ML SDV IV ONE (07:47)
[2019-09-30] MEDS ORDERED: Lactated Ringers 1,000 ML IV SCH (08:00)
[2019-09-30] MEDS ORDERED: Lidocaine 1% with EPINEPHrine 1:100,000 30 ML MDV INJECT ONE (08:54)
--- NOTE | 2019-09-30 10:58 | OR ---
DATE: 09/30/2019 PREOPERATIVE DIAGNOSIS: Infected cyst, left scalp. POSTOPERATIVE DIAGNOSIS: Infected cyst, left scalp. PROCEDURE: Incision and drainage with debridement of infected sebaceous cyst. ANESTHESIA: Local plus MAC. SPECIMEN: Cultures and sebaceous cyst wall. INDICATION FOR PROCEDURE: This 44-year-old female presented to the emergency room last night with a tender mass behind the left ear on her scalp. This is consistent with infected cyst. She appears to have some tracking down posteriorly behind the ear. I elected to do this in the operating room with some anesthesia. PROCEDURE IN DETAIL: After adequate preparation, 1% xylocaine with epinephrine was used to infiltrate an area over the cyst infected area. This was then incised and carried down into the cyst cavity. At that time, there was a purulent drainage from the cyst cavity. Cultures of this were taken. The opened wound was then debrided and the cyst wall sac was easily identified and removed. There was essentially no bleeding. The wound was packed with 0.5 inch iodoform gauze. Packing will be removed in 2 days. [facility] /[id number]
== END 2019-09-30 10:00 | disposition home or self-care (01) ==
LOC: DL.SDS 07:46 → EDSTATUS 09:00 → DL.SDS 10:00
PROVIDERS: ATTEND Surgery
DX: L72.3 Sebaceous cyst (principal); L08.9 Local infection of the skin and subcutaneous tissue, unspecified; J45.909 Unspecified asthma, uncomplicated; F41.9 Anxiety disorder, unspecified; F32.9 Major depressive disorder, single episode, unspecified; Z87.891 Personal history of nicotine dependence
CPT/HCPCS: 00164; 82962; 87070; 87075; 97597; J2250; J2405; J2704; J3010; J7120; 10060

== ENCOUNTER 2020-04-01 06:52 | Emergency (ER) | payer MEDICAID ==
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
[2020-04-01 07:49] LABS: ANION GAP 22.3 mEq/L (7-13); CHLORIDE,CL 102 mmol/L (98-107); SODIUM,NA 141 mmol/L (136-145)
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
[2020-04-01 09:35] LABS: PTT,PARTIAL THROMBOPLSTIN TIME 21.9 SEC (22.0-34.0)
== END 2020-04-01 08:45 ==
LOC: DL.ED 06:52
DX: T76.21XA Adult sexual abuse, suspected, initial encounter (principal); S05.11XA Contusion of eyeball and orbital tissues, right eye, initial encounter; S40.019A Contusion of unspecified shoulder, initial encounter; S40.029A Contusion of unspecified upper arm, initial encounter; F15.10 Other stimulant abuse, uncomplicated; J45.909 Unspecified asthma, uncomplicated; S80.10XA Contusion of unspecified lower leg, initial encounter; E66.9 Obesity, unspecified; F10.120 Alcohol abuse with intoxication, uncomplicated; E11.9 Type 2 diabetes mellitus without complications; Z79.84 Long term (current) use of oral hypoglycemic drugs; Z79.899 Other long term (current) drug therapy; Y90.7 Blood alcohol level of 200-239 mg/100 ml
CPT/HCPCS: 36415; 70486; 80053; 80305-QW; 80307; 81001; 83735; 84703; 85025; 85610; 85730; 99285-25

== ENCOUNTER 2020-08-18 20:03 | Emergency (ER) | payer MEDICAID ==
[2020-08-18] MEDS ORDERED: Clindamycin HCl 150 MG Cap PO ONE (21:49)
--- NOTE | 2020-08-18 21:56 | EDM.PDOC ---
ED HPI GENERAL MEDICAL PROBLEM - General Chief Complaint: ENT Problem Stated Complaint: PAIN AND SWELLING IN JAW Time Seen by Provider: 08/18/20 20:35 Source of Information: Reports: Patient History Limitations: Reports: No Limitations - History of Present Illness INITIAL COMMENTS - FREE TEXT/NARRATIVE: ED with c/o lower jaw pain and swelling. Multiple broken teeth, Has not seen dentist recently. Has no dental insurance. Reports PCP working to get set up with dentist no fever, Pain opening mouth, Difficult to eat. Swelling front of jaw. Treatments SURFACE GRINDING MACHINE HAND: Reports: NSAIDS Bilateral Lower Jaw Pain Score (Numeric/FACES): 9 - Related Data Allergies Allergy/AdvReac Type Severity Reaction Status Date / Time No Known Allergies Allergy Verified 08/18/20 21:31 Home Meds: Home Meds Albuterol [Ventolin HFA] 1 inh INH Q6H PRN 02/14/18 [History] ClonazePAM [KlonoPIN] 0.5 mg PO DAILY PRN 02/14/18 [History] Albuterol [Proventil Neb Soln] 2.5 mg .XX Q4HR PRN 12/03/18 [History] Fluticasone Propionate [Flonase] 2 sprays NASBOTH DAILY 12/03/18 [History] Ibuprofen 800 mg PO Q8H PRN 12/03/18 [History] Fluticasone Propion/Salmeterol [Advair 250-50 Diskus] 1 inh INH ASDIRECTED 06/03/19 [History] Insulin Detemir [Levemir] 25 units SQ DAILY 08/18/20 [History] metFORMIN [Glucophage XR] 1,000 mg PO BID 08/18/20 [History] Past Medical History HEENT History: Reports: None Cardiovascular History: Reports: None Respiratory History: Reports: Asthma, Bronchitis, Recurrent, Pneumonia, Recurrent Gastrointestinal History: Reports: Cholelithiasis Genitourinary History: Reports: Renal Disease, Other (See Below) Other Genitourinary History: unknown kidney disease DANCE CRITIC History: Reports: , 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 Endocrine/Metabolic History: Reports: Obesity/BMI 30+, Other (See Below) Other Endocrine/Metabolic History: currently testing thyroid and T4 levels, questioning hashimotos Hematologic History: Reports: Anemia Immunologic History: Reports: None Oncologic (Cancer) History: Reports: None Dermatologic History: Reports: Other (See Below) Other Dermatologic History: cysts - Infectious Disease History Infectious Disease History: Reports: Chicken Pox, Mononucleosis - Past Surgical History Head Surgeries/Procedures: Reports: None HEENT Surgical History: Reports: Tonsillectomy Cardiovascular Surgical History: Reports: None Respiratory Surgical History: Reports: None GI Surgical History: Reports: Cholecystectomy Female Surgical History: Reports: Tubal Ligation Endocrine Surgical History: Reports: None Neurological Surgical History: Reports: None Musculoskeletal Surgical History: Reports: ORIF, Other (See Below) Other Musculoskeletal Surgeries/Procedures:: hx of fractured ankle Oncologic Surgical History: Reports: None Dermatological Surgical History: Reports: None Social & Family History - Family History Family Medical History: No Pertinent Family History - Tobacco Use Tobacco Use Status *Q: Never Tobacco User Second Hand Smoke Exposure: No - Caffeine Use Caffeine Use: Reports: None - Recreational Drug Use Recreational Drug Use: No - Living Situation & Occupation Living situation: Reports: with Significant Other, with Family ED ROS ENT - Review of Systems Review Of Systems: Comprehensive ROS is negative, except as noted in HPI. ED EXAM, ENT - Physical Exam Exam: See Below Exam Limited By: No Limitations General Appearance: Alert, Mild Distress Eye Exam: Bilateral Eye: EOMI Nose: Normal Inspection Mouth/Throat: Dental Abcess, Dental Pain, Dental Tenderness, Gum Swelling (right lower). No: Normal Teeth Head: Atraumatic, Normocephalic Neck: Normal Inspection Respiratory/Chest: No Respiratory Distress, Lungs Clear Cardiovascular: Normal Peripheral Pulses, Regular Rate, Rhythm GI/Abdominal: Normal Bowel Sounds, Soft (Female) Exam: Normal External Exam Back: Normal Inspection, Full Range of Motion Extremities: Normal Inspection, Normal Range of Motion Neurological: Alert, Oriented, Normal Cognition Psychiatric: Normal Affect Skin: Warm, Dry, Intact Course - Vital Signs Last Recorded V/S: Last Vital Signs Temp 97.1 F 08/18/20 20:30 Pulse 91 08/18/20 20:30 Resp 18 08/18/20 20:30 BP 116/78 08/18/20 20:30 Pulse Ox 97 08/18/20 20:30 - Orders/Labs/Meds Meds: Medications Discontinued Medications Generic Name Dose Route Start Last Admin Trade Name Salvador PRN Reason Stop Dose Admin Clindamycin HCl 300 mg 08/18/20 21:49 08/18/20 22:06 Clindamycin Hcl 150 Mg Cap PO 08/18/20 21:50 300 mg ONETIME ONE Administration Departure - Departure Time of Disposition: 21:52 Disposition: Home, Self-Care 01 Condition: Good Clinical Impression: Abscess, dental, Diabetes - Discharge Information *PRESCRIPTION DRUG MONITORING PROGRAM REVIEWED*: No *COPY OF PRESCRIPTION DRUG MONITORING REPORT IN PATIENT SARY: No Instructions: Dental Abscess Forms: ED Department Discharge Additional Instructions: clindamycin 300mg 3 times daily for 7 days clinic follow up 1-2 days alternate tylenol and ibuprofen every 4 hours as needed for discomfort oral rinses with lukewarm ater after meals Sepsis Event Note (ED) - Evaluation Sepsis Screening Result: No Definite Risk - Focused Exam Vital Signs: Vital Signs Temp Pulse Resp BP Pulse Ox 08/18/20 20:30 97.1 F 91 18 116/78 97
== END 2020-08-18 22:09 | disposition home or self-care (01) ==
LOC: DL.ED 20:03
DX: K04.7 Periapical abscess without sinus (principal); E11.9 Type 2 diabetes mellitus without complications; E66.9 Obesity, unspecified; Z68.41 Body mass index [BMI] 40.0-44.9, adult
CPT/HCPCS: 99284; A9270; 99283

== ENCOUNTER 2020-08-25 11:43 | Emergency (ER) | payer MEDICAID, OTHER ==
--- NOTE | 2020-08-25 12:01 | EDM.PDOC ---
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 Pt states she was seen in the ER on 08/18/20 by Katarzyna HERNANDEZ and prescribed Clindamycin. The left teeth/gums improved, but the right mandibular molar area is still swollen adjacent to the chronically and severely decayed teeth. Denies fever or chills. Pt states she was hoping to have Svetlana Maldonado or her staff initiate the referral her insurance requires so she can be seen by the dental specialist, but they sent her to the ER instead. Onset: Gradual Duration: Week(s): (1) Location: Reports: Other (Dental) Quality: Reports: Ache, Throbbing Severity: Severe Improves with: Reports: None Worsens with: Reports: Eating Associated Symptoms: Reports: No Other Symptoms Oral/Mouth Pain Score (Numeric/FACES): 5 - Related Data Allergies Allergy/AdvReac Type Severity Reaction Status Date / Time No Known Allergies Allergy Verified 08/18/20 21:31 Home Meds: Home Meds Albuterol [Ventolin HFA] 1 inh INH Q6H PRN 02/14/18 [History] ClonazePAM [KlonoPIN] 0.5 mg PO DAILY PRN 02/14/18 [History] Albuterol [Proventil Neb Soln] 2.5 mg .XX Q4HR PRN 12/03/18 [History] Fluticasone Propionate [Flonase] 2 sprays NASBOTH DAILY 12/03/18 [History] Ibuprofen 800 mg PO Q8H PRN 12/03/18 [History] Fluticasone Propion/Salmeterol [Advair 250-50 Diskus] 1 inh INH ASDIRECTED 06/03/19 [History] Insulin Detemir [Levemir] 25 units SQ DAILY 08/18/20 [History] metFORMIN [Glucophage XR] 1,000 mg PO BID 08/18/20 [History] Past Medical History HEENT History: Reports: Other (See Below) (Dental decay) Cardiovascular History: Reports: None Respiratory History: Reports: Asthma, Bronchitis, Recurrent, Pneumonia, Recurrent Gastrointestinal History: Reports: Cholelithiasis Genitourinary History: Reports: Renal Disease, Other (See Below) Other Genitourinary History: unknown kidney disease 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 Endocrine/Metabolic History: Reports: Obesity/BMI 30+, Other (See Below) Other Endocrine/Metabolic History: currently testing thyroid and T4 levels, questioning hashimotos Hematologic History: Reports: Anemia Immunologic History: Reports: None Oncologic (Cancer) History: Reports: None Dermatologic History: Reports: Other (See Below) Other Dermatologic History: cysts - Infectious Disease History Infectious Disease History: Reports: Chicken Pox, Mononucleosis - Past Surgical History Head Surgeries/Procedures: Reports: None HEENT Surgical History: Reports: Tonsillectomy Cardiovascular Surgical History: Reports: None Respiratory Surgical History: Reports: None GI Surgical History: Reports: Cholecystectomy Female Surgical History: Reports: Tubal Ligation Endocrine Surgical History: Reports: None Neurological Surgical History: Reports: None Musculoskeletal Surgical History: Reports: ORIF, Other (See Below) Other Musculoskeletal Surgeries/Procedures:: hx of fractured ankle Oncologic Surgical History: Reports: None Dermatological Surgical History: Reports: None Social & Family History - Family History Family Medical History: No Pertinent Family History - Caffeine Use Caffeine Use: Reports: None - Recreational Drug Use Recreational Drug Use: Yes Recreational Drug Type: Reports: Methamphetamine Recreational Drug Use Frequency: Not Used In Over 1 Year - Living Situation & Occupation Living situation: Reports: with Significant Other, with Family ED ROS ENT - Review of Systems Review Of Systems: Comprehensive ROS is negative, except as noted in HPI. ED EXAM, ENT - Physical Exam Exam: See Below Exam Limited By: No Limitations General Appearance: Alert, WD/WN, No Apparent Distress, Obese Nose: Normal Inspection, Normal Mucousa, No Blood Mouth/Throat: Dental Abcess (Right mandibular molar region. Slight swelling of face overlying mandible, no erythema), Dental Pain (Extensive chronic decay), Dental Tenderness Head: Atraumatic, Normocephalic, Facial Tenderness (Right) Neck: Normal Inspection, Supple, Non-Tender, Full Range of Motion. No: Lymphadenopathy (L), Lymphadenopathy (R) Respiratory/Chest: No Respiratory Distress, Lungs Clear, Normal Breath Sounds, No Accessory Muscle Use, Chest Non-Tender Cardiovascular: Regular Rate, Rhythm Neurological: Alert, Oriented, Normal Cognition, No Motor/Sensory Deficits, Other (Chronic tremor) Psychiatric: Normal Affect, Normal Mood Skin: Warm, Dry, Intact, Normal Color, No Rash Course - Vital Signs Last Recorded V/S: Last Vital Signs Temp 97.2 F 08/25/20 12:01 Pulse 94 08/25/20 12:01 Resp 14 08/25/20 12:01 BP 107/94 H 08/25/20 12:01 Pulse Ox 96 08/25/20 12:01 - Orders/Labs/Meds Orders: Active Orders 24 hr Category Date Time Status Peripheral IV Care [RC] . DIRECTED Care 08/25/20 12:06 Active BASIC METABOLIC PANEL,BMP [CHEM] Stat Lab 08/25/20 12:19 Received C-REACTIVE PROTEIN [CHEM] Stat Lab 08/25/20 12:19 Received CBC WITH AUTO DIFF [HEME] Stat Lab 08/25/20 12:19 Received Sodium Chloride 0.9% [Saline Flush] Med 08/25/20 12:06 Active 10 ml FLUSH ASDIRECTED PRN Peripheral IV Insertion Adult [OM.PC] Stat Oth 08/25/20 12:06 Ordered Medication Orders Sodium Chloride (Sodium Chloride 0.9% 10 Ml Syringe) 10 ml FLUSH ASDIRECTED PRN PRN Reason: Keep Vein Open Meds: Medications Generic Name Dose Route Start Last Admin Trade Name Freq PRN Reason Stop Dose Admin Sodium Chloride 10 ml 08/25/20 12:06 Sodium Chloride 0.9% 10 Ml Syringe FLUSH ASDIRECTED PRN Keep Vein Open Discontinued Medications Generic Name Dose Route Start Last Admin Trade Name Freq PRN Reason Stop Dose Admin Piperacillin Sod/Tazobactam 100 mls @ 200 mls/hr 08/25/20 12:06 08/25/20 12:34 Sod 4.5 gm/ Sodium Chloride IV 08/25/20 12:35 200 mls/hr ONETIME ONE Administration Lidocaine HCl 15 ml 08/25/20 12:07 08/25/20 12:34 Lidocaine 2% Viscous Solution 15 Ml Cup PO 08/25/20 12:08 15 ml ONETIME ONE Administration Departure - Departure Time of Disposition: 12:50 Disposition: Home, Self-Care 01 Condition: Good Clinical Impression: Abscess, dental, Dental caries - Discharge Information *PRESCRIPTION DRUG MONITORING PROGRAM REVIEWED*: No *COPY OF PRESCRIPTION DRUG MONITORING REPORT IN PATIENT SARY: No Instructions: Dental Abscess, [id number] Forms: ED Department Discharge Additional Instructions: Rx: Augmentin 875mg Rx: Flagyl 500mg (Do not drink alcohol when taking this medication). See your primary doctor to complete the referral to a dental specialist. Sepsis Event Note (ED) - Focused Exam Vital Signs: Vital Signs Temp Pulse Resp BP Pulse Ox 08/25/20 12:01 97.2 F 94 14 107/94 H 96 - My Orders Last 24 Hours: My Active Orders 08/25/20 12:06 Peripheral IV Care [RC] . DIRECTED Sodium Chloride 0.9% [Saline Flush] 10 ml FLUSH ASDIRECTED PRN Peripheral IV Insertion Adult [OM.PC] Stat 08/25/20 12:19 BASIC METABOLIC PANEL,BMP [CHEM] Stat C-REACTIVE PROTEIN [CHEM] Stat CBC WITH AUTO DIFF [HEME] Stat - Assessment/Plan Last 24 Hours: My Active Orders 08/25/20 12:06 Peripheral IV Care [RC] . DIRECTED Sodium Chloride 0.9% [Saline Flush] 10 ml FLUSH ASDIRECTED PRN Peripheral IV Insertion Adult [OM.PC] Stat 08/25/20 12:19 BASIC METABOLIC PANEL,BMP [CHEM] Stat C-REACTIVE PROTEIN [CHEM] Stat CBC WITH AUTO DIFF [HEME] Stat
[2020-08-25] MEDS ORDERED: Piperacillin/Tazobactam 4.5 GM in Sodium Chloride 0.9% 100 ML IV ONE (12:06)
[2020-08-25] MEDS ORDERED: Sodium Chloride 0.9% 10 ML Syringe FLUSH PRN (12:06)
[2020-08-25] MEDS ORDERED: Lidocaine 2% Viscous Solution 15 ML Cup PO ONE (12:07)
[2020-08-25 12:42] LABS: ANION GAP 15.8 mEq/L (7-13); CHLORIDE,CL 101 mmol/L (98-107); SODIUM,NA 135 mmol/L (136-145)
== END 2020-08-25 13:12 | disposition home or self-care (01) ==
LOC: DL.ED 11:43
DX: K04.7 Periapical abscess without sinus (principal); K02.9 Dental caries, unspecified; E66.9 Obesity, unspecified; Z68.30 Body mass index [BMI] 30.0-30.9, adult
CPT/HCPCS: 36415; 80048; 85025; 86140; 96365; 99283; 99283-25; A9270-GY; J2543

== ENCOUNTER 2020-10-05 10:38 | Emergency (ER) | payer MEDICAID | END 2020-10-05 15:00 | disposition left against medical advice (07) | LOC: DL.ED 10:38 | DX: Z53.21 Procedure and treatment not carried out due to patient leaving prior to being seen by health care provider (principal) ==

== ENCOUNTER 2020-11-11 11:36 | Emergency (ER) | payer MEDICAID ==
[2020-11-11 12:10] LABS: AMPHETAMINES,URINE NEGATIVE (NEGATIVE); BARBITURATES,URINE NEGATIVE (NEGATIVE); BENZODIAZEPINE,URINE NEGATIVE (NEGATIVE); MDMA (ECSTASY), URINE NEGATIVE (NEGATIVE); METHADONE,URINE NEGATIVE (NEGATIVE); METHAMPHETAMINES,URINE NEGATIVE (NEGATIVE); OPIATES,URINE NEGATIVE (NEGATIVE); OXYCODONE,URINE NEGATIVE (NEGATIVE); PHENCYCLIDINE,URINE NEGATIVE (NEGATIVE); TCA,URINE NEGATIVE (NEGATIVE)
[2020-11-11 12:24] LABS: ANION GAP 13.9 mEq/L (7-13); CHLORIDE,CL 101 mmol/L (98-107); SODIUM,NA 140 mmol/L (136-145)
--- NOTE | 2020-11-11 12:48 | CT ---
PROCEDURE INFORMATION: Exam: CT Head Without Contrast Exam date and time: 11/11/2020 12:30 PM Age: 45 years old Clinical indication: Pain; Other: New onset headache to L parietal lobe; Dizziness TECHNIQUE: Imaging protocol: Computed tomography of the head without contrast. Radiation optimization: All CT scans at this facility use at least one of these dose optimization techniques: automated exposure control; mA and/or kV adjustment per patient size (includes targeted exams where dose is matched to clinical indication); or iterative reconstruction. COMPARISON: CT Head wo Cont 01/21/2017 12:42 PM FINDINGS: Brain: No hemorrhage, mass effect or midline shift. Cerebral ventricles: No ventriculomegaly. Paranasal sinuses: Left maxillary sinusitis. Mastoid air cells: Visualized mastoid air cells are well aerated. Bones/joints: No acute fracture. Soft tissues: 9 mm sebaceous cyst noted within the right posterior soft tissues. IMPRESSION: 1. No hemorrhage, mass effect or midline shift. 2. Left maxillary sinusitis.
[2020-11-11] MEDS ORDERED: Ibuprofen 600 MG Tab PO ONE (12:54)
--- NOTE | 2020-11-11 12:54 | EDM.PDOC ---
ED HPI GENERAL MEDICAL PROBLEM - General Chief Complaint: Headache Stated Complaint: SENT FROM CLINIC Time Seen by Provider: 11/11/20 12:00 Source of Information: Reports: Patient, RN History Limitations: Reports: No Limitations - History of Present Illness INITIAL COMMENTS - FREE TEXT/NARRATIVE: Viridiana is a 45 y/o female who presents to the ED at the request of her [facility] provider for left headache headache, blurry vision, and hypertension. The patient states her headache has been ongoing for three days and have maintained in severity over that time. She reports she does not experience frequent headache. She states she feels her vision is blurry secondary to pain in her left temporal lobe. Additionally, she notes transient dizziness, especially with quick movements of her head. She denies recent illness, falls, fever, shaking chills, cough, sore throat, chest pain, palpitations, or shortness of breath. The patient states she is not currently taking any antihypertensive medications. She has been taking ibuprofen which has provided [id number] alleviation of her headache. She denies tobacco, alcohol, or recreational drug use. - Related Data Allergies Allergy/AdvReac Type Severity Reaction Status Date / Time No Known Allergies Allergy Verified 11/11/20 11:51 Home Meds: Home Meds ClonazePAM [KlonoPIN] 0.5 mg PO DAILY PRN 02/14/18 [History] Fluticasone Propionate [Flonase] 2 sprays NASBOTH DAILY 12/03/18 [History] Ibuprofen 800 mg PO Q8H PRN 12/03/18 [History] Insulin Detemir [Levemir] 65 units SQ BEDTIME 08/18/20 [History] metFORMIN [Glucophage XR] 1,000 mg PO BID 08/18/20 [History] Albuterol Sulfate [Proair Hfa] 2 puff INH Q6HR PRN 11/11/20 [History] Cyclobenzaprine [Flexeril] 5 mg PO BID PRN 11/11/20 [History] DULoxetine [Cymbalta] 30 mg PO DAILY 11/11/20 [History] FLUoxetine [PROzac] 20 mg PO DAILY 11/11/20 [History] Montelukast [Singulair] 10 mg PO BEDTIME 11/11/20 [History] atorvaSTATin [Lipitor] 10 mg PO DAILY 11/11/20 [History] ondansetron HCL [Zofran] 4 mg PO Q8HR PRN 11/11/20 [History] Past Medical History HEENT History: Reports: Other (See Below) Cardiovascular History: Reports: None Respiratory History: Reports: Asthma, Bronchitis, Recurrent, Pneumonia, Recurrent Gastrointestinal History: Reports: Cholelithiasis Genitourinary History: Reports: Renal Disease, Other (See Below) Other Genitourinary History: unknown kidney disease 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 Endocrine/Metabolic History: Reports: Obesity/BMI 30+, Other (See Below) Other Endocrine/Metabolic History: currently testing thyroid and T4 levels, questioning hashimotos Hematologic History: Reports: Anemia Immunologic History: Reports: None Oncologic (Cancer) History: Reports: None Dermatologic History: Reports: Other (See Below) Other Dermatologic History: cysts - Infectious Disease History Infectious Disease History: Reports: Chicken Pox, Mononucleosis - Past Surgical History Head Surgeries/Procedures: Reports: None HEENT Surgical History: Reports: Tonsillectomy Cardiovascular Surgical History: Reports: None Respiratory Surgical History: Reports: None GI Surgical History: Reports: Cholecystectomy Female Surgical History: Reports: Tubal Ligation Endocrine Surgical History: Reports: None Neurological Surgical History: Reports: None Musculoskeletal Surgical History: Reports: ORIF, Other (See Below) Other Musculoskeletal Surgeries/Procedures:: hx of fractured ankle Oncologic Surgical History: Reports: None Dermatological Surgical History: Reports: None Social & Family History - Family History Family Medical History: No Pertinent Family History - Tobacco Use Tobacco Use Status *Q: Never Tobacco User Second Hand Smoke Exposure: No - Caffeine Use Caffeine Use: Reports: Coffee - Recreational Drug Use Recreational Drug Use: No - Living Situation & Occupation Living situation: Reports: with Significant Other, with Family ED ROS GENERAL - Review of Systems Review Of Systems: Comprehensive ROS is negative, except as noted in HPI. - Physical Exam Exam: See Below Exam Limited By: No Limitations General Appearance: Alert, Mild Distress (Headache to left temporal lobe) Eye Exam: Bilateral Eye: EOMI, PERRL (3mm), Other (Photophobia) Ears: Normal External Exam, Hearing Grossly Normal. No: Normal TMs (L erythema and fluid ) Nose: Normal Inspection, Normal Mucosa, No Blood Throat/Mouth: Normal Inspection, Normal Oropharynx, Normal Voice, No Airway Compromise Head Exam: Atraumatic, Normocephalic, Sinus Tenderness (To left maxillary sinus) Neck: Normal Inspection, Supple, Non-Tender, Full Range of Motion. No: Lymphadenopathy (L), Lymphadenopathy (R) Respiratory/Chest: No Respiratory Distress, Lungs Clear, Normal Breath Sounds, No Accessory Muscle Use, Chest Non-Tender Cardiovascular: Normal Peripheral Pulses, Regular Rate, Rhythm, No Edema, No Gallop, No JVD, No Murmur, No Rub GI/Abdominal: Normal Bowel Sounds, Soft, Non-Tender (Female) Exam: Deferred Rectal (Female) Exam: Deferred Neuro Exam (Abbreviated): Alert, Oriented, CN II-XII Intact, Normal Cognition, Normal Gait, Normal Reflexes, No Motor/Sensory Deficits. No: Slow to Respond, Memory Loss Remote Events, Memory Loss Recent Events Back Exam: Normal Inspection, Full Range of Motion Extremities: Normal Inspection, Normal Range of Motion, Normal Capillary Refill Psychiatric: Normal Affect, Normal Mood Skin Exam: Warm, Dry, Intact, Normal Color, No Rash. No: Cyanosis, Jaundice, Mottled, Pallor Course - Vital Signs Last Recorded V/S: Last Vital Signs Temp 96.9 F 11/11/20 11:51 Pulse 70 11/11/20 11:51 Resp 20 11/11/20 11:51 BP 150/91 H 11/11/20 11:51 Pulse Ox 99 11/11/20 11:51 - Orders/Labs/Meds Labs: Laboratory Tests 11/11/20 11/11/20 11/11/20 Range/Units 11:55 11:55 11:55 WBC (5.0-10.0) 10^3/uL RBC (4.2-5.4) 10^6/uL Hgb (12.0-16.0) g/dL Hct (37.0-47.0) % MCV (80-100) fL MCH (27.0-34.0) pg MCHC (33.0-35.0) g/dL Plt Count (150-450) 10^3/uL Neut % (Auto) (42.2-75.2) % Lymph % (Auto) (20.5-50.1) % [place] % (Auto) (2-8) % Eos % (Auto) (1.0-3.0) % Baso % (Auto) (0.0-1.0) % Sodium (136-145) mmol/L Potassium (3.5-5.1) mmol/L Chloride (98-107) mmol/L Carbon Dioxide (21-32) mmol/L Anion Gap (7-13) mEq/L BUN (7-18) mg/dL Creatinine (0.55-1.02) mg/dL Est Cr Clr Drug Dosing mL/min Estimated GFR (MDRD) BUN/Creatinine Ratio (No establ ref range) Glucose (70-99) mg/dL Calcium (8.5-10.1) mg/dL Total Bilirubin (0.2-1.0) mg/dL AST (15-37) U/L ALT (14-59) U/L Alkaline Phosphatase (46-116) U/L C-Reactive Protein (0.0-0.9) mg/dL Total Protein (6.4-8.2) g/dL Albumin (3.4-5.0) g/dL Globulin Albumin/Globulin Ratio Urine Color Yellow (YELLOW) Urine Appearance Clear (CLEAR) Urine pH 7.5 (5.0-9.0) Ur Specific [facility] 1.020 (1.005-1.030) Urine Protein Negative (NEGATIVE) Urine Glucose (UA) 100 H (NEGATIVE) Urine Ketones Negative (NEGATIVE) Urine Occult Blood Negative (NEGATIVE) Urine Nitrite Negative (NEGATIVE) Urine Bilirubin Negative (NEGATIVE) Urine Urobilinogen 0.2 (0.2-1.0) mg/dL Ur Leukocyte Esterase Negative (NEGATIVE) Urine HCG, Qual Negative Urine Opiates Screen Negative (NEGATIVE) Ur Oxycodone Screen Negative (NEGATIVE) Urine Methadone Screen Negative (NEGATIVE) Ur Barbiturates Screen Negative (NEGATIVE) U Tricyclic Antidepress Negative (NEGATIVE) Ur Phencyclidine Scrn Negative (NEGATIVE) Ur Amphetamine Screen Negative (NEGATIVE) U Methamphetamines Scrn Negative (NEGATIVE) Urine MDMA Screen Negative (NEGATIVE) U Benzodiazepines Scrn Negative (NEGATIVE) Urine Cocaine Screen Negative (NEGATIVE) U Marijuana (THC) Screen Positive H (NEGATIVE) Ethyl Alcohol (0) mg/dL 11/11/20 11/11/20 Range/Units 11:58 11:58 WBC 9.1 (5.0-10.0) 10^3/uL RBC 4.49 (4.2-5.4) 10^6/uL Hgb 13.8 (12.0-16.0) g/dL Hct 38.8 (37.0-47.0) % MCV 86.4 (80-100) fL MCH 30.7 (27.0-34.0) pg MCHC 35.6 H (33.0-35.0) g/dL Plt Count 288 (150-450) 10^3/uL Neut % (Auto) 66.9 (42.2-75.2) % Lymph % (Auto) 24.4 (20.5-50.1) % [place] % (Auto) 6.0 (2-8) % Eos % (Auto) 2.3 (1.0-3.0) % Baso % (Auto) 0.4 (0.0-1.0) % Sodium 140 (136-145) mmol/L Potassium 3.9 (3.5-5.1) mmol/L Chloride 101 (98-107) mmol/L Carbon Dioxide 29 (21-32) mmol/L Anion Gap 13.9 H (7-13) mEq/L BUN 7 (7-18) mg/dL Creatinine 0.52 L (0.55-1.02) mg/dL Est Cr Clr Drug Dosing 127.90 mL/min Estimated GFR (MDRD) > 60 BUN/Creatinine Ratio 13.5 (No establ ref range) Glucose 191 H (70-99) mg/dL Calcium 8.4 L (8.5-10.1) mg/dL Total Bilirubin 0.3 (0.2-1.0) mg/dL AST 22 (15-37) U/L ALT 38 (14-59) U/L Alkaline Phosphatase 95 (46-116) U/L C-Reactive Protein 0.7 (0.0-0.9) mg/dL Total Protein 7.0 (6.4-8.2) g/dL Albumin 3.5 (3.4-5.0) g/dL Globulin 3.5 Albumin/Globulin Ratio 1.0 Urine Color (YELLOW) Urine Appearance (CLEAR) Urine pH (5.0-9.0) Ur Specific [facility] (1.005-1.030) Urine Protein (NEGATIVE) Urine Glucose (UA) (NEGATIVE) Urine Ketones (NEGATIVE) Urine Occult Blood (NEGATIVE) Urine Nitrite (NEGATIVE) Urine Bilirubin (NEGATIVE) Urine Urobilinogen (0.2-1.0) mg/dL Ur Leukocyte Esterase (NEGATIVE) Urine HCG, Qual Urine Opiates Screen (NEGATIVE) Ur Oxycodone Screen (NEGATIVE) Urine Methadone Screen (NEGATIVE) Ur Barbiturates Screen (NEGATIVE) U Tricyclic Antidepress (NEGATIVE) Ur Phencyclidine Scrn (NEGATIVE) Ur Amphetamine Screen (NEGATIVE) U Methamphetamines Scrn (NEGATIVE) Urine MDMA Screen (NEGATIVE) U Benzodiazepines Scrn (NEGATIVE) Urine Cocaine Screen (NEGATIVE) U Marijuana (THC) Screen (NEGATIVE) Ethyl Alcohol < 3 (0) mg/dL Meds: Medications Discontinued Medications Generic Name Dose Route Start Last Admin Trade Name Freq PRN Reason Stop Dose Admin Ibuprofen 600 mg 11/11/20 12:54 11/11/20 13:14 Ibuprofen 600 Mg Tab PO 11/11/20 12:55 600 mg ONETIME ONE Administration - Radiology Interpretation Free Text/Narrative:: [facility] Final Radiology Report Call: [phone] assistance Online chat: [email or web address] Name: VIRIDIANA MCALLISTER Age: 45Years F Date: 11/11/2020 SSN: -- : [id number] Study: CT HEAD WO CONT Requesting Physician: Deborah Beltran Images: 162 Addl Studies: Provided Clinical History: New onset headache to L parietal lobe; Dizziness Contrast: Without Contrast Medium: Contrast Amount: Contrast Method: Page 1 of 2 PROCEDURE INFORMATION: Exam: CT Head Without Contrast Exam date and time: 11/11/2020 12:30 PM Age: 45 years old Clinical indication: Pain; Other: New onset headache to L parietal lobe; Dizziness TECHNIQUE: Imaging protocol: Computed tomography of the head without contrast. Radiation optimization: All CT scans at this facility use at least one of these dose optimization techniques: automated exposure control; mA and/or kV adjustment per patient size (includes targeted exams where dose is matched to clinical indication); or iterative reconstruction. COMPARISON: CT Head wo Cont 01/21/2017 12:42 PM FINDINGS: Brain: No hemorrhage, mass effect or midline shift. Cerebral ventricles: No ventriculomegaly. Paranasal sinuses: Left maxillary sinusitis. Mastoid air cells: Visualized mastoid air cells are well aerated. Bones/joints: No acute fracture. Soft tissues: 9 mm sebaceous cyst noted within the right posterior soft tissues. IMPRESSION: 1. No hemorrhage, mass effect or midline shift. 2. Left maxillary sinusitis. Thank you for allowing us to participate in the care of your patient. Dictated and Authenticated by: Jerod Quiroz DO 11/11/2020 12:48 PM Central Time ([place] & [place]) - Re-Assessments/Exams Free Text/Narrative Re-Assessment/Exam: 11/11/[address] head given new onset headache and dizziness. Findings of examination, lab work, and imaging reviewed with patient. Will treat sinusitis with Augmentin. Discussed supportive cares for sinusitis and secondary headache. Red flag signs and symptoms which would warrant reevaluation reviewed. Patient verbalized understanding and agreement with the plan of care. Departure - Departure Time of Disposition: 13:02 Disposition: Home, Self-Care 01 Condition: Fair Clinical Impression: Left maxillary sinusitis Headache Qualifiers: Headache type: unspecified Headache chronicity pattern: unspecified pattern Intractability: not intractable Qualified Code(s): R51 - Headache - Discharge Information *PRESCRIPTION DRUG MONITORING PROGRAM REVIEWED*: Not Applicable *COPY OF PRESCRIPTION DRUG MONITORING REPORT IN PATIENT SARY: Not Applicable Instructions: Sinusitis, Adult, Sinus Headache Referrals: Svetlana Maldonado NP [Primary Care Provider] - Forms: ED Department Discharge Additional Instructions: Rx: Augmentin 1.) Take all of your antibiotic until gone, even as your symptoms improve. 2.) You may take ibuprofen (Advil/Motrin) 400mg every six hours, as headache persists. You may also take acetaminophen (Tylenol) 650mg every six hours, as pain persists. You may stagger these medications so you are receiving a dose every three hours. 3.) Continue to apply ice compresses to the affected area, as pain persists. 4.) Follow up with your primary care provider regarding today's visit, including recheck of blood pressure. 5.) Return to the emergency department with any persistent or worsening symptoms despite medications.
== END 2020-11-11 13:19 | disposition home or self-care (01) ==
LOC: DL.ED 11:36
DX: J32.0 Chronic maxillary sinusitis (principal); E66.9 Obesity, unspecified; Z68.41 Body mass index [BMI] 40.0-44.9, adult; Z79.4 Long term (current) use of insulin; Z79.899 Other long term (current) drug therapy
CPT/HCPCS: 36415; 70450; 80053; 80305; 80307; 81003; 81025; 85025; 86140; 99284; A9270

== ENCOUNTER 2021-04-01 13:29 | Emergency (ER) | payer BC, MEDICAID ==
[2021-04-01] MEDS ORDERED: methylPREDNISolone Sodium Succinate 125 MG/2 ML SDV IVPUSH ONE (14:30)
[2021-04-01] MEDS ORDERED: Clindamycin in 0.9 % Sod Chlor 600 MG in Premix Bag 1 BAG IV ONE ×2 (14:30)
[2021-04-01] MEDS ORDERED: HYDROmorphone 0.5 MG/0.5 ML Syringe IVPUSH ONE (14:56)
== END 2021-04-01 15:40 | disposition home or self-care (01) ==
LOC: DL.ED 13:29
DX: K04.7 Periapical abscess without sinus (principal); E66.9 Obesity, unspecified; Z68.41 Body mass index [BMI] 40.0-44.9, adult; Z88.8 Allergy status to other drugs, medicaments and biological substances; Z79.899 Other long term (current) drug therapy
CPT/HCPCS: 96365; 96375; 99283; J1170; J2930; J3490

== ENCOUNTER 2021-09-29 20:59 | Emergency (ER) | payer BC ==
[2021-09-29] MEDS ORDERED: Sodium Chloride 0.9% 1,000 ML IV ONE (23:19)
[2021-09-29 23:28] LABS: ANION GAP 11.8 mEq/L (7-13); CHLORIDE,CL 101 mmol/L (98-107); SODIUM,NA 138 mmol/L (136-145)
[2021-09-29 23:32] LABS: ESTIMATED GFR 89 mL/min (>=60)
[2021-09-30 00:07] LABS: CORONAVIRUS COVID-19 NAA NEGATIVE (NEGATIVE)
== END 2021-09-30 00:57 | disposition home or self-care (01) ==
LOC: DL.ED 20:59
DX: E11.65 Type 2 diabetes mellitus with hyperglycemia (principal); E66.9 Obesity, unspecified; Z68.41 Body mass index [BMI] 40.0-44.9, adult; Z88.8 Allergy status to other drugs, medicaments and biological substances; Z79.899 Other long term (current) drug therapy; Z79.4 Long term (current) use of insulin; Z79.84 Long term (current) use of oral hypoglycemic drugs; Z90.49 Acquired absence of other specified parts of digestive tract; Z20.822 Contact with and (suspected) exposure to COVID-19
CPT/HCPCS: 0240U; 36415; 80053; 81003; 82009; 82947; 85025; 96360; 99284; J7030

== ENCOUNTER 2021-11-15 10:10 | Emergency (ER) | payer BC, MEDICAID ==
[~2021-11-15 10:10] MED LIST: HYDROmorphone 1 MG/ML Syringe IVPUSH ONE; Ondansetron 4 MG/2 ML SDV IVPUSH ONE; Sodium Chloride 0.9% 1,000 ML IV ONE; Sodium Chloride 0.9% 10 ML Syringe FLUSH PRN
[2021-11-15] MEDS ORDERED: fentaNYL 100 MCG/2 ML SDV IVPUSH ONE (10:24)
[2021-11-15 10:25] LABS: ANION GAP 14.7 mEq/L (7-13); PTT,PARTIAL THROMBOPLSTIN TIME 23.2 SEC (22.0-34.0)
[2021-11-15] MEDS ORDERED: fentaNYL 100 MCG/2 ML SDV ONE (10:25)
[2021-11-15] MEDS ORDERED: Iopamidol 612 MG/ML 100 ML Bottle IVPUSH ONE (10:29)
[2021-11-15 11:13] LABS: CORONAVIRUS COVID-19 NAA POSITIVE (NEGATIVE)
[2021-11-15 12:24] LABS: AMPHETAMINES,URINE NEGATIVE (NEGATIVE); BARBITURATES,URINE NEGATIVE (NEGATIVE); BENZODIAZEPINE,URINE NEGATIVE (NEGATIVE); MDMA (ECSTASY), URINE NEGATIVE (NEGATIVE); METHADONE,URINE NEGATIVE (NEGATIVE); METHAMPHETAMINES,URINE NEGATIVE (NEGATIVE); OPIATES,URINE POSITIVE (NEGATIVE); OXYCODONE,URINE NEGATIVE (NEGATIVE); PHENCYCLIDINE,URINE NEGATIVE (NEGATIVE); TCA,URINE POSITIVE (NEGATIVE)
[2021-11-15] MEDS ORDERED: ClonazePAM 0.5 MG Tab PO ONE (12:48)
== END 2021-11-15 13:26 | disposition home or self-care (01) ==
LOC: DL.ED 10:10
DX: U07.1 COVID-19 (principal); K42.9 Umbilical hernia without obstruction or gangrene; F41.0 Panic disorder [episodic paroxysmal anxiety]; E11.9 Type 2 diabetes mellitus without complications; E66.9 Obesity, unspecified; Z79.4 Long term (current) use of insulin; Z88.8 Allergy status to other drugs, medicaments and biological substances; Z79.899 Other long term (current) drug therapy; Z79.84 Long term (current) use of oral hypoglycemic drugs; Z20.822 Contact with and (suspected) exposure to COVID-19; Z68.1 Body mass index [BMI] 19.9 or less, adult
CPT/HCPCS: 0240U; 36415; 71045; 74177; 80053; 80305; 81003; 81025; 82150; 83605; 83690; 84484; 85025; 85610; 85730; 86140; 87040; 93005; 93010; 96361; 96374; 96375; 99284; A9270; J1170; J2405; J3010; J3490; J7030; Q9967

== ENCOUNTER 2022-05-05 13:40 | Emergency (ER) | payer MEDICAID ==
[2022-05-05] MEDS ORDERED: Albuterol/Ipratropium 3.0-0.5 MG/3 ML Neb Soln NEB ONE (14:11)
[2022-05-05] MEDS ORDERED: methylPREDNISolone Sodium Succinate 125 MG/2 ML SDV IVPUSH ONE (14:49)
[2022-05-05] MEDS ORDERED: Albuterol 0.083% 2.5 MG/3 ML Neb Soln NEB ONE (14:49)
[2022-05-05 14:55] LABS: ANION GAP 16.9 mEq/L (7-13)
[2022-05-05 15:17] LABS: CORONAVIRUS COVID-19 NAA NEGATIVE (NEGATIVE); RESPIRATORY SYNCYTIAL VIR NAA POSITIVE (NEGATIVE)
[2022-05-05] MEDS ORDERED: Magnesium Sulfate/Water 2 GM in Premix Bag 1 BAG IV ONE ×2 (15:39→15:51)
[2022-05-05] MEDS ORDERED: Azithromycin 250 MG Tab PO ONE (16:12)
[2022-05-05] MEDS ORDERED: cefTRIAXone 1 GM Vial IVPUSH ONE (16:13)
== END 2022-05-05 17:35 | disposition home or self-care (01) ==
LOC: DL.ED 13:40
DX: J12.1 Respiratory syncytial virus pneumonia (principal); E11.65 Type 2 diabetes mellitus with hyperglycemia; R79.89 Other specified abnormal findings of blood chemistry; J45.909 Unspecified asthma, uncomplicated; E66.9 Obesity, unspecified; Z88.8 Allergy status to other drugs, medicaments and biological substances; Z79.899 Other long term (current) drug therapy; Z79.4 Long term (current) use of insulin; Z20.822 Contact with and (suspected) exposure to COVID-19; Z68.41 Body mass index [BMI] 40.0-44.9, adult
CPT/HCPCS: 0241U; 36415; 71045; 80053; 83605; 85025; 86140; 94640; 96374; 96375; 96376; 99284; 99284-25; A9270-GY; J0696; J2930; J3475; J7613-GY; J7620-GY

== ENCOUNTER 2023-03-22 06:26 | Day surgery (SDC) | payer MEDICAID ==
[~2023-03-22 06:26] MED LIST changes: -HYDROmorphone 1 MG/ML Syringe IVPUSH ONE; -Ondansetron 4 MG/2 ML SDV IVPUSH ONE; -Sodium Chloride 0.9% 1,000 ML IV ONE; +Sodium Chloride 0.9% 10 ML Syringe FLUSH SCH
[2023-03-22] MEDS ORDERED: Dextrose 5%-0.45% NaCl 1,000 ML IV SCH (06:30)
[2023-03-22] MEDS ORDERED: Midazolam 1 MG/ML 2 ML SDV ONE (07:29)
[2023-03-22] MEDS ORDERED: fentaNYL 100 MCG/2 ML SDV ONE (07:29)
[2023-03-22] MEDS ORDERED: fentaNYL 100 MCG/2 ML SDV IV ONE ×4 (07:33→07:46)
[2023-03-22] MEDS ORDERED: Midazolam 1 MG/ML 2 ML SDV IV ONE ×6 (07:34→07:41)
== END 2023-03-22 09:45 | disposition home or self-care (01) ==
LOC: DL.ENDO 06:26
PROVIDERS: ATTEND Internal Medicine Gastroenterology
DX: Z12.11 Encounter for screening for malignant neoplasm of colon (principal); E11.9 Type 2 diabetes mellitus without complications; F41.1 Generalized anxiety disorder; E73.9 Lactose intolerance, unspecified; E78.5 Hyperlipidemia, unspecified; Z88.8 Allergy status to other drugs, medicaments and biological substances
CPT/HCPCS: J2250; J3010; J7042

== ENCOUNTER 2023-06-22 07:10 | Emergency (ER) | payer MEDICAID ==
[2023-06-22 07:51] LABS: BASOPHILS PERCENT AUTO 0.3 % (0.0-1.0); EOSINOPHILS PERCENT AUTO 0.5 % (1.0-3.0); HEMATOCRIT 43.3 % (37.0-47.0); HEMOGLOBIN 15.5 g/dL (12.0-16.0); LYMPHOCYTES PERCENT AUTO 34.7 % (20.5-50.1); MEAN CORPUSCULAR HGB CONC 35.8 g/dL (33.0-35.0); MEAN CORPUSCULAR VOLUME 86.6 fL (80-100); MONOCYTES PERCENT AUTO 8.7 % (2-8); NEUTROPHILS PERCENT AUTO 55.8 % (42.2-75.2); PLATELET COUNT,PLT 289 10^3/uL (150-450); WHITE BLOOD CELL COUNT,WBC 10.2 10^3/uL (5.0-10.0)
[2023-06-22] MEDS: Albuterol/Ipratropium 3.0-0.5 MG/3 ML Neb Soln NEB ONE ×2 (07:56→08:55)
[2023-06-22] MEDS: Sodium Chloride 0.9% 10 ML Syringe FLUSH PRN (07:56)
[2023-06-22 08:13] LABS: A/G RATIO 1.2; ALANINE AMINOTRANSFERASE,ALT 54 U/L (14-59); ALBUMIN 4.3 g/dL (3.4-5.0); ALKALINE PHOSPHATASE 98 U/L (46-116); ANION GAP 15.8 mEq/L (7-13); ASPARTATE AMNIOTRANSFERASE,AST 28 U/L (15-37); BILIRUBIN TOTAL 0.5 mg/dL (0.2-1.0); BLOOD UREA NITROGEN,BUN 15 mg/dL (7-18); BUN/CREATININE RATIO 24.6 (No establ ref range); C-REACTIVE PROTEIN 0.63 ng/dL (<=0.50); CARBON DIOXIDE,CO2 26 mmol/L (21-32); CHLORIDE,CL 100 mmol/L (98-107); CREATININE 0.61 mg/dL (0.55-1.02); GLUCOSE RANDOM 165 mg/dL (70-99); POTASSIUM,K 3.8 mmol/L (3.5-5.1); PROTEIN TOTAL,TP 7.8 g/dL (6.4-8.2); SODIUM,NA 138 mmol/L (136-145)
[2023-06-22 08:14] LABS: B-TYPE NATRIURETIC PEPTIDE,BNP < 5 pg/ml (0-100); ESTIMATED GFR 111 mL/min (>=60)
[2023-06-22 08:25] LABS: LACTIC ACID 0.8 mmol/L (0.4-2.0)
[2023-06-22] MEDS: GI Cocktail Oral Solution 30 ML PO ONE (08:55)
[2023-06-22] MEDS: Famotidine 20 MG/2 ML SDV IVPUSH ONE (08:55)
[2023-06-22 09:12] LABS: CORONAVIRUS COVID-19 NAA NEGATIVE (NEGATIVE); INFLUENZA A NAA NEGATIVE (NEGATIVE); INFLUENZA B NAA NEGATIVE (NEGATIVE); RESPIRATORY SYNCYTIAL VIR NAA NEGATIVE (NEGATIVE)
[2023-06-22] MEDS: Iopamidol 755 Mg/ML 100 ML Bottle IVPUSH ONE (09:22)
== END 2023-06-22 10:21 | disposition home or self-care (01) ==
LOC: DL.ED 07:10
DX: K20.90 Esophagitis, unspecified without bleeding (principal); K29.70 Gastritis, unspecified, without bleeding; J45.909 Unspecified asthma, uncomplicated; E11.9 Type 2 diabetes mellitus without complications; E66.9 Obesity, unspecified; Z86.16 Personal history of COVID-19; Z79.84 Long term (current) use of oral hypoglycemic drugs; Z79.4 Long term (current) use of insulin; Z88.8 Allergy status to other drugs, medicaments and biological substances; Z79.899 Other long term (current) drug therapy; Z79.51 Long term (current) use of inhaled steroids; Z90.49 Acquired absence of other specified parts of digestive tract; Z68.41 Body mass index [BMI] 40.0-44.9, adult
CPT/HCPCS: 0241U; 36415; 71045; 71275; 80053; 83605; 83880; 84145; 84484; 85025; 86140; 87040; 93005; 96374; 99285; A9270; J3490; Q9967; J7620-GY